=== PATIENT | male | born 1970 | race Two or more races ===

== ENCOUNTER 2016-06-17 16:21 | Emergency (ER) | payer SELFPAY ==
[2016-06-17 16:38] VITALS: BP 126/56; PULSE 95; TEMP 98; BMI 26.5
[2016-06-17] MEDS ORDERED: OXYCODONE/APAP 5/325MG COMBO TABLET PO ONE (17:45)
--- NOTE | 2016-06-17 17:46 | PDOC ---
History of Present Illness - General Chief Complaint: Pain Stated Complaint: LT SHOULDER INJURY Time Seen by Provider: 06/17/16 17:20 History Source: Patient Exam Limitations: No Limitations - History of Present Illness Initial Comments: 06/17/16 17:42 45 yr male states he injured his left shoulder 4 days ago at work 06/13/16 was seen at [facility] had negative xray and a sling was given. Pt states he called out of work today and needs a note. Upper Extremity Pain Location: left: shoulder Method of Injury: reports: direct blow (heavy materials fell on shoulder at work 06/13/16) Past History - Past Medical History Allergies/Adverse Reactions: Allergies Allergy/AdvReac Type Severity Reaction Status Date / Time NSAIDS (Non-Steroidal Allergy Verified 06/17/16 16:38 Anti-Inflamma Home Medications: Ambulatory Orders Oxycodone HCl/Acetaminophen [Percocet 5-325 mg Tablet] 1 tab PO Q4H PRN #12 tablet MDD 6 tabs 06/17/16 Anemia: No Asthma: No Cancer: No Cardiac Disorders: No CVA: No COPD: No CHF: No Dementia: No Diabetes: No GI Disorders: Yes (gastric ulcer) Disorders: (Kidney stones.) HTN: Yes Hypercholesterolemia: No Kidney Stones: Yes Liver Disease: No (DENIES) Suicide Attempt (Hx): No Seizures: No Thyroid Disease: No - Surgical History Abdominal Surgery: Yes (blood clot,cyst) Appendectomy: No Cardiac Surgery: No Cholecystectomy: No Lung Surgery: No Neurologic Surgery: No Orthopedic Surgery: No - Family Disease History Family Disease History: Diabetes: Father, Heart Disease: Father - Immunization History Td Vaccination: Yes Immunization Up to Date: Yes - Psycho/Social/Smoking Cessation Hx Anxiety: No Suicidal Ideation: No Smoking Status: Yes Smoking History: Never smoked Have you smoked in the past 12 months: Yes Number of Cigarettes Smoked Daily: 6 Cigars Per Day: 0 Information on smoking cessation initiated: No 'Breaking Loose' booklet given: 01/29/16 Hx Alcohol Use: No Drug/Substance Use Hx: No Substance Use Type: None Hx Substance Use Treatment: No *Physical Exam - Vital Signs Last Vital Signs Temp Pulse Resp BP Pulse Ox 98 F 95 H 18 126/56 99 06/17/16 16:36 06/17/16 16:36 06/17/16 16:36 06/17/16 16:36 06/17/16 16:36 - Physical Exam General Appearance: Yes: Nourished, Appropriately Dressed HEENT: positive: EOMI, HUNTER Neck: positive: Supple. negative: Tender, Tender lateral Respiratory/Chest: positive: Lungs Clear, Normal Breath Sounds Cardiovascular: positive: Regular Rhythm, Regular Rate Extremity: positive: Normal Capillary Refill, Normal Inspection, Tender ( anterior left shoulder, anterior humeral head, limited ROM due to pain , nv intact ) Integumentary: positive: Normal Color, Dry, Warm Neurologic: positive: Fully Oriented, Alert, Normal Mood/Affect, Normal Response , Motor Strength 07/19 ED Treatment Course - RADIOLOGY Radiology Studies Ordered: Category Date Time Status SHOULDER-LEFT [RAD] Stat Radiology 06/17/16 17:40 Ordered Medical Decision Making - Medical Decision Making 06/17/16 17:51 cc: shoulder injury 06/13/16 c/o pain needs a work note pt has a sling 06/17/16 18:19 *DC/Admit/Observation/Transfer Diagnosis at time of Disposition: Shoulder injury Qualifiers: Encounter type: initial encounter Laterality: left Qualified Code(s): S49.92XA - Unspecified injury of left shoulder and upper arm, initial encounter - Discharge Dispostion Disposition: HOME Condition at time of disposition: Good - Prescriptions Prescriptions: Oxycodone HCl/Acetaminophen [Percocet 5-325 mg Tablet] 1 tab PO Q4H PRN #12 tablet MDD 6 tabs PRN Reason: Severe Pain - Referrals Referrals: Niels Amezquita MD [Staff Physician] - - Patient Instructions Printed Discharge Instructions: How to Use a Sling Additional Instructions: please follow up with or the orthopedist for further care take percocet for severe pain use the sling during the day apply ice every 2hrs for 20 minutes to the left shoulder while awake for pain - Post Discharge Activity Work/School Note: Back to Work
[2016-06-17] MEDS ORDERED: OXYCODONE/APAP 5/325MG COMBO TABLET ONE (17:47)
== END 2016-06-17 18:32 | disposition home or self-care (01) ==
LOC: JERFT 16:21
DX: S49.82XD Other specified injuries of left shoulder and upper arm, subsequent encounter (principal); W20.8XXD Other cause of strike by thrown, projected or falling object, subsequent encounter
CPT/HCPCS: 73030-TC-LT; 99281-25

== ENCOUNTER 2016-06-26 18:40 | Emergency (ER) | payer OTHER ==
[2016-06-26 18:53] VITALS: BP 114/72; PULSE 90; TEMP 98.3; BMI 26.5
[2016-06-26] MEDS ORDERED: ACETAMINOPHEN 325 MG TABLET (FP) PO ONE (19:09)
[2016-06-26] MEDS ORDERED: ACETAMINOPHEN 325 MG TABLET (FP) ONE (19:11)
--- NOTE | 2016-06-26 19:15 | PDOC ---
History of Present Illness - General Chief Complaint: Pain, Acute Stated Complaint: PAIN Time Seen by Provider: 06/26/16 18:54 History Source: Patient - History of Present Illness Occurred: reports: other Upper Extremity Pain Location: left: shoulder Past History - Past Medical History Allergies/Adverse Reactions: Allergies Allergy/AdvReac Type Severity Reaction Status Date / Time NSAIDS (Non-Steroidal Allergy Verified 06/17/16 16:38 Anti-Inflamma Home Medications: Ambulatory Orders NK [No Known Home Medication] 06/26/16 Anemia: No Asthma: No Cancer: No Cardiac Disorders: No CVA: No COPD: No CHF: No Dementia: No Diabetes: No GI Disorders: Yes (gastric ulcer) Disorders: (Kidney stones.) HTN: Yes Hypercholesterolemia: No Kidney Stones: Yes Liver Disease: No (DENIES) Suicide Attempt (Hx): No Seizures: No Thyroid Disease: No - Surgical History Abdominal Surgery: Yes (blood clot,cyst) Appendectomy: No Cardiac Surgery: No Cholecystectomy: No Lung Surgery: No Neurologic Surgery: No Orthopedic Surgery: No - Family Disease History Family Disease History: Diabetes: Father, Heart Disease: Father - Immunization History Td Vaccination: Yes Immunization Up to Date: Yes - Psycho/Social/Smoking Cessation Hx Anxiety: No Suicidal Ideation: No Smoking Status: Yes Smoking History: Current every day smoker Have you smoked in the past 12 months: Yes Number of Cigarettes Smoked Daily: 1 Cigars Per Day: 0 Information on smoking cessation initiated: Yes 'Breaking Loose' booklet given: 06/26/16 Hx Alcohol Use: No Drug/Substance Use Hx: No Substance Use Type: None Hx Substance Use Treatment: No *Physical Exam - Vital Signs Last Vital Signs Temp Pulse Resp BP Pulse Ox 98.3 F 90 18 114/72 98 06/26/16 18:47 06/26/16 18:47 06/26/16 18:47 06/26/16 18:47 06/26/16 18:47 Medical Decision Making - Medical Decision Making 06/26/16 19:10 46-year-old male, h/o GERD, abd surgery 2/2 perf viscous from "excessive alcohol use" as per pt, complaining of left shoulder pain. Patient was seen in ED approximately 10 days ago after getting left shoulder caught between sheet rockss. Had, had prior x-ray done that was negative. Patient was given percocet and a sling and ortho referral but returns today reporting that pain got worse today while at work. States sling makes pain worse. Not currently taking anything for pain as per patient and requesting percocet specifically today. Patient well-appearing and in no apparent distress, with minimal tenderness to palpation to the superior aspect of the G-H joint. DC with over- the-counter pain meds and encourage orthopedic follow-up at this time 06/26/16 19:12 06/26/16 19:14 *DC/Admit/Observation/Transfer Diagnosis at time of Disposition: Shoulder pain, left Qualifiers: Chronicity: acute Qualified Code(s): M25.512 - Pain in left shoulder - Discharge Dispostion Disposition: HOME Condition at time of disposition: Good - Patient Instructions Additional Instructions: Take Tylenol as needed and follow up with orthopedics
== END 2016-06-26 19:17 | disposition home or self-care (01) ==
LOC: JERFT 18:40
DX: S49.82XD Other specified injuries of left shoulder and upper arm, subsequent encounter (principal); W20.8XXD Other cause of strike by thrown, projected or falling object, subsequent encounter; Y92.61 Building [any] under construction as the place of occurrence of the external cause; I10 Essential (primary) hypertension; Z87.11 Personal history of peptic ulcer disease; Z87.442 Personal history of urinary calculi
CPT/HCPCS: 99281-25

== ENCOUNTER 2016-07-08 12:57 | Emergency (ER) | payer OTHER ==
[2016-07-08 13:09] VITALS: BP 105/56; PULSE 76; TEMP 97.7; BMI 26.5
[2016-07-08] MEDS ORDERED: IBUPROFEN 400 MG TABLET (FP) PO ONE ×2 (14:07→14:09)
--- NOTE | 2016-07-08 14:14 | PDOC ---
History of Present Illness - General Chief Complaint: Injury Stated Complaint: FOOT PAIN Time Seen by Provider: 07/08/16 13:44 History Source: Patient - History of Present Illness Occurred: reports: this afternoon Lower Extremity Pain Location: left: 2nd toe Past History - Past Medical History Allergies/Adverse Reactions: Allergies Allergy/AdvReac Type Severity Reaction Status Date / Time No Known Allergies Allergy Verified 07/08/16 13:09 Home Medications: Ambulatory Orders NK [No Known Home Medication] 06/26/16 Anemia: No Asthma: No Cancer: No Cardiac Disorders: No CVA: No COPD: No CHF: No Dementia: No Diabetes: No GI Disorders: Yes (gastric ulcer) Disorders: (Kidney stones.) HTN: Yes Hypercholesterolemia: No Kidney Stones: Yes Liver Disease: No (DENIES) Suicide Attempt (Hx): No Seizures: No Thyroid Disease: No - Surgical History Abdominal Surgery: Yes (blood clot,cyst) Appendectomy: No Cardiac Surgery: No Cholecystectomy: No Lung Surgery: No Neurologic Surgery: No Orthopedic Surgery: No - Family Disease History Family Disease History: Diabetes: Father, Heart Disease: Father - Immunization History Td Vaccination: Yes Immunization Up to Date: Yes - Psycho/Social/Smoking Cessation Hx Anxiety: No Suicidal Ideation: No Smoking Status: Yes Smoking History: Current every day smoker Have you smoked in the past 12 months: Yes Number of Cigarettes Smoked Daily: 1 Cigars Per Day: 0 Information on smoking cessation initiated: Yes 'Breaking Loose' booklet given: 07/08/16 Hx Alcohol Use: No Drug/Substance Use Hx: No Substance Use Type: None Hx Substance Use Treatment: No Review of Systems - Review of Systems Musculoskeletal: Yes: Joint Pain, Joint Swelling *Physical Exam - Vital Signs Last Vital Signs Temp Pulse Resp BP Pulse Ox 97.7 F 76 19 105/56 98 07/08/16 13:07 07/08/16 13:07 07/08/16 13:07 07/08/16 13:07 07/08/16 13:07 - Physical Exam General Appearance: Yes: Appropriately Dressed. No: Apparent Distress HEENT: positive: Normal Voice Neck: positive: Supple Respiratory/Chest: negative: Respiratory Distress Extremity: positive: Other (swelling to distal L 2nd toe w/ loose nail and cuticle disruption, +dried blood to site) Integumentary: positive: Dry, Warm Neurologic: positive: Fully Oriented, Alert, Normal Mood/Affect ED Treatment Course - RADIOLOGY Radiology Studies Ordered: Category Date Time Status TOE(S) LEFT [RAD] Stat Radiology 07/08/16 14:08 Ordered Medical Decision Making - Medical Decision Making 07/08/16 14:09 46 yo male, h/o GERD, abd surgery 2/2 perf viscous 2/2 "excessive ETOH use" per pt, c/o L 2nd toe injury. 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 Patient limping in ED. See exam Nail avulsion s/p foot injury at work today -tetanus -XR -nail removal w/ digital block -wound check as needed. 07/08/16 15:10 S/p toenail removal, no lac to nailbed to repair. Local wound care and dressing at bedside. Pt aware that it take ~3-4 months for nail to regrow. Dc w/ wound check as needed 07/08/16 15:14 *DC/Admit/Observation/Transfer Diagnosis at time of Disposition: Injury of toe Qualifiers: Encounter type: initial encounter Laterality: left Qualified Code(s): S99.922A - Unspecified injury of left foot, initial encounter Nail avulsion of toe Qualifiers: Encounter type: initial encounter Qualified Code(s): S91.209A - Unspecified open wound of unspecified toe(s) with damage to nail, initial encounter - Discharge Dispostion Disposition: HOME Condition at time of disposition: Good - Patient Instructions Printed Discharge Instructions: DI for Nail Avulsion Injury Additional Instructions: Return for redness, pus or fever. Take tylenol as needed for pain
[2016-07-08] MEDS ORDERED: DIPHTH,PERTUSS(ACELL),TET 0.5 ML DISP.SYRIN IM ONE (14:17)
== END 2016-07-08 15:16 | disposition home or self-care (01) ==
LOC: JERFT 12:57
PROC: 3E0234Z Introduction of Serum, Toxoid and Vaccine into Muscle, Percutaneous Approach (ICD-10-PCS; principal; 2016-07-08)
PROC: 0HDRXZZ Extraction of Toe Nail, External Approach (ICD-10-PCS; 2016-07-08)
DX: S91.205A Unspecified open wound of left lesser toe(s) with damage to nail, initial encounter (principal); W22.8XXA Striking against or struck by other objects, initial encounter; Y93.H3 Activity, building and construction; Y92.69 Other specified industrial and construction area as the place of occurrence of the external cause; Y99.0 Civilian activity done for income or pay
CPT/HCPCS: 73660-TC; 90715; 99281-25

== ENCOUNTER 2016-08-13 20:04 | Emergency (ER) | payer SELFPAY ==
[2016-08-13 20:12] VITALS: BP 134/76; PULSE 81; TEMP 97.6; BMI 28.3
[2016-08-13] MEDS ORDERED: METHOCARBAMOL 500 MG TABLET ONE ×2 (20:57→21:00)
[2016-08-13] MEDS ORDERED: METHOCARBAMOL 500 MG TABLET PO ONE ×2 (20:58)
[2016-08-13] MEDS ORDERED: KETOROLAC TROMETHAMINE 60 MG/2 ML VIAL IM ONE (20:58)
[2016-08-13] MEDS ORDERED: KETOROLAC TROMETHAMINE 30 MG/1 ML VIAL ONE (20:58)
--- NOTE | 2016-08-13 21:01 | PDOC ---
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 Patient has chronic pain problems and spasmodic back and neck musculature. It is under pain management with frequent steroid injections and some type of medication that he receives from pain management that he is uncertain as to name. States is not a narcotic and not a pain relief medication. Does not use any anti- spasmodic or narcotic pain relief now. An ice fever, denies any bone pain. States it is an acute exacerbation of his chronic neck and back pain 08/13/16 20:56 Occurred: reports: this afternoon Severity: reports: moderate Pain Location: reports: back, neck Modifying Factors: improves with: pain medication Associated Symptoms (Fall): denies symptoms Past History - Travel Traveled outside of the country in the last 30 days: No Close contact w/someone who was outside of country & ill: No - Past Medical History Allergies/Adverse Reactions: Allergies Allergy/AdvReac Type Severity Reaction Status Date / Time No Known Allergies Allergy Verified 08/13/16 20:09 Home Medications: Ambulatory Orders Methocarbamol [Robaxin -] 1,500 mg PO Q8H PRN #20 tablet 08/13/16 Anemia: No Asthma: No Cancer: No Cardiac Disorders: No CVA: No COPD: No CHF: No Dementia: No Diabetes: No GI Disorders: Yes (gastric ulcer) Disorders: (Kidney stones.) HTN: Yes Hypercholesterolemia: No Kidney Stones: Yes Liver Disease: No (DENIES) Suicide Attempt (Hx): No Seizures: No Thyroid Disease: No - Surgical History Abdominal Surgery: Yes (blood clot,cyst) Appendectomy: No Cardiac Surgery: No Cholecystectomy: No Lung Surgery: No Neurologic Surgery: No Orthopedic Surgery: No - Family Disease History Family Disease History: Diabetes: Father, Heart Disease: Father - Immunization History Td Vaccination: Yes Immunization Up to Date: Yes - Psycho/Social/Smoking Cessation Hx Anxiety: No Suicidal Ideation: No Smoking Status: Yes Smoking History: Current every day smoker Have you smoked in the past 12 months: Yes Number of Cigarettes Smoked Daily: 3 Cigars Per Day: 0 Information on smoking cessation initiated: No 'Breaking Loose' booklet given: 07/08/16 Hx Alcohol Use: No Drug/Substance Use Hx: No Substance Use Type: None Hx Substance Use Treatment: No Trauma Specific PMHX - Complaint Specific PMHX Arthritis: No Back Injury: Yes Neck Injury: Yes Review of Systems - Review of Systems Able to Perform ROS?: Yes Is the patient limited Ecuadorean proficient: Yes Constitutional: Yes: Symptoms Reported, See HPI, Malaise Musculoskeletal: Yes: Symptoms Reported, See HPI, Joint Pain, Muscle Pain, Muscle Weakness, Neck Pain Integumentary: No: Symptoms Reported Neurological: Yes: Symptoms reported, Paresthesia (along the lateral aspect of left arm) *Physical Exam - Vital Signs Last Vital Signs Temp Pulse Resp BP Pulse Ox 97.6 F 81 20 134/76 99 08/13/16 20:10 08/13/16 20:10 08/13/16 20:10 08/13/16 20:10 08/13/16 20:10 - Physical Exam General Appearance: Yes: Nourished, Appropriately Dressed, Apparent Distress, Mild Distress, Moderate Distress HEENT: positive: HUNTER, Normal ENT Inspection, TMs Normal, Pharynx Normal Neck: positive: Tender, Supple, Other (palpable tense spasm noted to bilateral paravertebral spinous muscles worse on the left than the right, that extended to upper trapezius and down to the lower insertion site of same. Patient range of motion is limited secondary to the significant spasm. Has no true bony tenderness to neck spinous process.) Respiratory/Chest: positive: Lungs Clear Gastrointestinal/Abdominal: positive: Soft Musculoskeletal: positive: Normal Inspection, Muscle Spasm. negative: Vertebral Tenderness Extremity: positive: Normal Capillary Refill, Normal Range of Motion Integumentary: positive: Normal Color, Dry, Warm Neurologic: positive: education officer II-XII NML intact, Fully Oriented, Alert, Normal Mood/ Affect Progress Note - Progress Note Progress Note: Neck spasm and back spasm. We'll treat with NSAIDs and Robaxin. Patient states will see pain management tomorrow or following day for reevaluation *DC/Admit/Observation/Transfer Diagnosis at time of Disposition: Neck pain, chronic - Discharge Dispostion Disposition: HOME Condition at time of disposition: Stable Admit: No - Patient Instructions Printed Discharge Instructions: DI for Back Spasm Additional Instructions: Rest, no heavy lifting or exercise until pain is resolved Hot soaks to neck and low back as often as possible/hot showers or Jacuzzis No massage or therapy until spasm is gone Continue ibuprofen 2-200 mg tablets every 6 hours for the next 3 days then as needed for pain and swelling Robaxin 1500 mg every 8 hours for 2 days, then 750 mg every 8 hours for 2 days, then 500 mg every 8 hours as needed for spasm If not significant improvement within 24 hours with medication and rest regime, followup with private physician for change in medications and /or therapy. - Post Discharge Activity Work/School Note: Back to Work
== END 2016-08-13 21:12 | disposition home or self-care (01) ==
LOC: JERFT 20:04
PROC: 3E0233Z Introduction of Anti-inflammatory into Muscle, Percutaneous Approach (ICD-10-PCS; principal; 2016-08-13)
DX: M62.838 Other muscle spasm (principal); V85.5XXA Driver of special construction vehicle injured in nontraffic accident, initial encounter; Y92.488 Other paved roadways as the place of occurrence of the external cause; Y93.89 Activity, other specified; Y99.0 Civilian activity done for income or pay
CPT/HCPCS: 99281-25

== ENCOUNTER 2016-08-15 11:29 | Emergency (ER) | payer OTHER ==
[2016-08-15 11:53] VITALS: BP 117/79; PULSE 81; TEMP 98; BMI 28.3
[2016-08-15] MEDS ORDERED: KETOROLAC TROMETHAMINE 60 MG/2 ML VIAL IM ONE (12:49)
[2016-08-15] MEDS ORDERED: KETOROLAC TROMETHAMINE 60 MG/2 ML VIAL ONE (12:57)
--- NOTE | 2016-08-15 12:58 | PDOC ---
History of Present Illness - General Chief Complaint: Pain Stated Complaint: RT SHOULDER PAIN Time Seen by Provider: 08/15/16 12:02 History Source: Patient - History of Present Illness Occurred: reports: this morning Upper Extremity Pain Location: left: shoulder Past History - Past Medical History Allergies/Adverse Reactions: Allergies Allergy/AdvReac Type Severity Reaction Status Date / Time No Known Allergies Allergy Verified 08/13/16 20:09 Anemia: No Asthma: No Cancer: No Cardiac Disorders: No CVA: No COPD: No CHF: No Dementia: No Diabetes: No GI Disorders: Yes (gastric ulcer) Disorders: (Kidney stones.) HTN: Yes Hypercholesterolemia: No Kidney Stones: Yes Liver Disease: No (DENIES) Suicide Attempt (Hx): No Seizures: No Thyroid Disease: No - Surgical History Abdominal Surgery: Yes (blood clot,cyst) Appendectomy: No Cardiac Surgery: No Cholecystectomy: No Lung Surgery: No Neurologic Surgery: No Orthopedic Surgery: No - Family Disease History Family Disease History: Diabetes: Father, Heart Disease: Father - Immunization History Td Vaccination: Yes Immunization Up to Date: Yes - Psycho/Social/Smoking Cessation Hx Anxiety: No Suicidal Ideation: No Smoking Status: Yes Smoking History: Current every day smoker Have you smoked in the past 12 months: Yes Number of Cigarettes Smoked Daily: 3 Cigars Per Day: 0 Information on smoking cessation initiated: No 'Breaking Loose' booklet given: 07/08/16 Hx Alcohol Use: No Drug/Substance Use Hx: No Substance Use Type: None Hx Substance Use Treatment: No Review of Systems - Review of Systems Constitutional: No: Fever Musculoskeletal: Yes: Joint Pain. No: Joint Swelling Neurological: No: Numbness, Tingling, Weakness *Physical Exam - Vital Signs Last Vital Signs Temp Pulse Resp BP Pulse Ox 98 F 81 16 117/79 100 08/15/16 11:48 08/15/16 11:48 08/15/16 11:48 08/15/16 11:48 08/15/16 11:48 - Physical Exam General Appearance: Yes: Appropriately Dressed, Mild Distress HEENT: positive: Normal Voice Neck: positive: Supple Respiratory/Chest: negative: Respiratory Distress Extremity: positive: Normal Inspection, Tender (to posterior aspect of L GH joint and superior aspect of L shoulderblade, LROM 2/2 pain, NVI) Integumentary: positive: Dry, Warm Neurologic: positive: Fully Oriented, Alert, Normal Mood/Affect Medical Decision Making - Medical Decision Making 08/15/16 13:06 46-year-old male, history of GERD, abdominal surgery 2/2 to perf from " excessive alcohol use", chronic left shoulder pain presents with worsening of shoulder pain after opening a window at work with am. Currently being followed up by employee's health and scheduled for MRI in the near future per pt. Follows up with pain management and on narcotics at home. No upper extremity weakness, numbness or tingling. See exam Acute on chronic shoulder pain Scheduled for MRI in near future F/u with pain management and on narcs at home -pain control and sling in ED -d/c with continued f/u 08/15/16 13:14 *DC/Admit/Observation/Transfer Diagnosis at time of Disposition: Chronic shoulder pain Qualifiers: Laterality: left Qualified Code(s): M25.512 - Pain in left shoulder; G89.29 - Other chronic pain - Discharge Dispostion Disposition: HOME Condition at time of disposition: Improved - Patient Instructions Additional Instructions: Take motrin or tylenol for pain and follow up with worker's comp for MRI Please follow up with your pain management MD
== END 2016-08-15 13:07 | disposition home or self-care (01) ==
LOC: JER 11:29 → JERFT 11:29
PROC: 3E0233Z Introduction of Anti-inflammatory into Muscle, Percutaneous Approach (ICD-10-PCS; principal; 2016-08-15)
DX: M25.512 Pain in left shoulder (principal); G89.29 Other chronic pain; X50.0XXA Overexertion from strenuous movement or load, initial encounter; X50.9XXA Other and unspecified overexertion or strenuous movements or postures, initial encounter; Y93.89 Activity, other specified; Y92.63 Factory as the place of occurrence of the external cause; Y99.0 Civilian activity done for income or pay
CPT/HCPCS: 99281-25

== ENCOUNTER 2016-11-13 10:43 | Emergency (ER) | payer SELFPAY ==
[2016-11-13 10:49] VITALS: BMI 26.6
[2016-11-13] MEDS ORDERED: KETOROLAC TROMETHAMINE 15 MG/ML VIAL IVPUSH ONE (13:51)
[2016-11-13] MEDS ORDERED: KETOROLAC TROMETHAMINE 15 MG/ML VIAL ONE (14:07)
[2016-11-13 14:09] LABS: BASOPHIL 0.8 % (0-2.0); EOSINOPHIL 2.1 % (0-4.5); MCHC 33.4 g/dl (32.0-35.9); MEAN CELL VOLUME 92.8 fl (80-96); MEAN PLT VOLUME 9.7 fl (7.5-11.1); NEUTROPHILS 68.8 % (42.8-82.8); PLATELET COUNT 243 K/MM3 (134-434); RDW 14.8 % (11.9-15.9); WHITE BLOOD COUNT 8.5 K/mm3 (4.0-10.0)
[2016-11-13] MEDS ORDERED: SODIUM CHLORIDE 1,000 ML IV STA (14:18)
[2016-11-13] MEDS ORDERED: LOPERAMIDE HCL 2 MG CAPSULE PO ONE (14:18)
--- NOTE | 2016-11-13 14:21 | PDOC ---
History of Present Illness <Noah Rubi - Last Filed: 11/13/16 17:49> - History of Present Illness Initial Comments: 11/13/16 14:25 "The patient is a 46 year old male, with a significant past medical history of hypertension, gastric ulcer(s/p laparotomy of perforated duodenal ulcer on 12/12), colitis, kidney stones(s/p stents), and chronic back pain, who presents to the emergency department complaining of back pain for approximately 3 days. The patient reports the pain radiates down into his lower back, and into his legs bilaterally. He denies numbness/weakness in his extremities. Denies saddle anesthesia, denies incontinence. Patient reports he has not been on any pain medications. Today, patient reports new onset of chest pain, which he describes as sharp. He reports associated, night sweats, and shortness of breath, but denies any palpitations or lower extremity edema. Patient reports a subjective fever and chills 3 days ago, but denies any cough, headache, or dizziness. He denies any dysuria, hematuria, frequency, urgency, or urinary incontinence. He denies any recent travel or sick contacts. Patient reports he has not been following up with anyone for his back pain, and states he usually comes to the ED when he cannot handle the pain any more. Allergies: NSAIDS Past Surgical History: Laparotomy of perforated duodenal ulcer, kidney stents Social History: Current smoker(approximately 6 cigarettes per day). Recreational marijuana use. No ETOH use. " <Yoel Brooks - Last Filed: 11/14/16 09:33> - General Chief Complaint: Pain Stated Complaint: DIARRHEA, LOWER BACK PAIN, ([place]) Time Seen by Provider: 11/13/16 12:31 Past History <Noah Rubi - Last Filed: 11/13/16 17:49> - Past Medical History Anemia: No Asthma: No Cancer: No Cardiac Disorders: No CVA: No COPD: No CHF: No Dementia: No Diabetes: No GI Disorders: Yes (gastric ulcer) Disorders: (Kidney stones.) HTN: Yes Hypercholesterolemia: No Kidney Stones: Yes Liver Disease: No (DENIES) Suicide Attempt (Hx): No Seizures: No Thyroid Disease: No - Surgical History Abdominal Surgery: Yes (blood clot,cyst) Appendectomy: No Cardiac Surgery: No Cholecystectomy: No GI Surgery: Yes Lung Surgery: No Neurologic Surgery: No Orthopedic Surgery: No - Family Disease History Family Disease History: Diabetes: Father, Heart Disease: Father - Immunization History Td Vaccination: Yes Immunization Up to Date: Yes - Psycho/Social/Smoking Cessation Hx Anxiety: No Suicidal Ideation: No Smoking Status: Yes Smoking History: Current every day smoker Have you smoked in the past 12 months: Yes Number of Cigarettes Smoked Daily: 4 Cigars Per Day: 0 Information on smoking cessation initiated: Yes 'Breaking Loose' booklet given: 11/13/16 Hx Alcohol Use: Yes (SOCIAL) Drug/Substance Use Hx: No Substance Use Type: None Hx Substance Use Treatment: No <Yoel Brooks - Last Filed: 11/14/16 09:33> - Past Medical History Allergies/Adverse Reactions: Allergies Allergy/AdvReac Type Severity Reaction Status Date / Time No Known Allergies Allergy Verified 11/13/16 10:49 Review of Systems - Review of Systems Comments:: 11/13/16 16:07 "GENERAL/CONSTITUTIONAL: Yes: no fever No weakness. HEAD, EYES, EARS, NOSE AND THROAT: No change in vision. No ear pain or discharge. No sore throat. CARDIOVASCULAR: Yes: +chest pain, no shortness of breath. RESPIRATORY: No cough, wheezing, or hemoptysis. GASTROINTESTINAL: No nausea, vomiting, diarrhea or constipation. GENITOURINARY: No dysuria, frequency, or change in urination. MUSCULOSKELETAL: Yes: +back pain radiating into legs. No joint or muscle swelling or pain. No neck pain. SKIN: No rash NEUROLOGIC: Yes: +tingling in the bilateral lower extremities. No headache, vertigo, loss of consciousness, or change in strength/sensation. ENDOCRINE: No increased thirst. No abnormal weight change. HEMATOLOGIC/LYMPHATIC: No anemia, easy bleeding, or history of blood clots. ALLERGIC/IMMUNOLOGIC: No hives or skin allergy. " <Yoel Brooks - Last Filed: 11/14/16 09:33> *Physical Exam - Vital Signs Last Vital Signs Temp Pulse Resp BP Pulse Ox 97.8 F 69 18 158/78 96 11/13/16 10:46 11/13/16 16:44 11/13/16 16:44 11/13/16 16:44 11/13/16 16:44 <Rubi,Giomilsy - Last Filed: 11/13/16 17:49> - Vital Signs Last Vital Signs Temp Pulse Resp BP Pulse Ox 97.8 F 94 H 20 130/89 97 11/13/16 10:46 11/13/16 10:46 11/13/16 10:46 11/13/16 10:46 11/13/16 10:46 - Physical Exam Comments: 11/13/16 16:08 "GENERAL: Awake, alert, and fully oriented, in no acute distress HEAD: No signs of trauma EYES: PERRLA, EOMI, sclera anicteric, conjunctiva clear ENT: Auricles normal inspection, hearing grossly normal, nares patent, oropharynx clear without exudates. Moist mucosa NECK: Normal ROM, supple, no lymphadenopathy, JVD, or masses LUNGS: Breath sounds equal, clear to auscultation bilaterally. No wheezes, and no crackles HEART: Regular rate and rhythm, normal S1 and S2, no murmurs, rubs or gallops ABDOMEN: Soft, nontender, normoactive bowel sounds. No guarding, no rebound. No masses EXTREMITIES: Normal range of motion, no edema. No clubbing or cyanosis. No cords, erythema, or tenderness NEUROLOGICAL: Cranial nerves II through XII intact, 5/5 strength and sensation in all extremities, normal reflexes, pt ambulatory in ER without assistance, normal gait SKIN: Warm, Dry, normal turgor, no rashes or lesions noted. " <OuYoel - Last Filed: 11/14/16 09:33> Heart Score/ECG Review - History History: Slightly suspicious - Electrocardiogram EKG: Normal - Age Age: 45-65 - Risk Factors Risk Factors Heart Score: Yes Hx Hypertension Based on the list above the patient has:: 1-2 risk factors - Troponin Troponin: </= normal limit - Score Heart Score - Total: 2 - ECG Impressions Comment:: 11/13/16 16:10 NSR, no TODD/STDs, no TWIs, intervals wnl, axis normal <Ou,Yoel - Last Filed: 11/14/16 09:33> ED Treatment Course - LABORATORY CBC & Chemistry Diagram: 11/13/16 13:05 11/13/16 13:05 - ADDITIONAL ORDERS Additional order review: Laboratory Results 11/13/16 11/13/16 11/13/16 16:30 14:00 14:00 INR 0.99 PTT (Actin FS) 36.3 H D-Dimer Sodium Potassium Chloride Carbon Dioxide Anion Gap BUN Creatinine Creat Clearance w eGFR Random Glucose Calcium Total Bilirubin AST ALT Alkaline Phosphatase Creatine Kinase 189 Creatine Kinase Index 0.9 CK-MB (CK-2) 1.883 Troponin I < 0.02 < 0.02 B-Natriuretic Peptide 15.59 Total Protein Albumin 11/13/16 11/13/16 14:00 13:05 INR PTT (Actin FS) D-Dimer < 200 Sodium 138 Potassium 4.3 Chloride 101 Carbon Dioxide 28 Anion Gap 9 BUN 10 D Creatinine 0.9 Creat Clearance w eGFR > 60 Random Glucose 92 D Calcium 9.3 Total Bilirubin 0.7 D AST 22 D ALT 26 D Alkaline Phosphatase 77 Creatine Kinase Creatine Kinase Index CK-MB (CK-2) Troponin I B-Natriuretic Peptide Total Protein 7.8 Albumin 4.4 D 11/13/16 13:05 RBC 5.41 D MCV 92.8 MCHC 33.4 RDW 14.8 MPV 9.7 Neutrophils % 68.8 Lymphocytes % 19.2 D Monocytes % 9.1 Eosinophils % 2.1 Basophils % 0.8 - RADIOLOGY Radiograph Interpretation: 11/13/16 17:49 EXAM: CXR INTERPRETED BY: Dr. Paulino REVIEWED BY: Dr. Brooks IMPRESSION: Clear lungs - Medications Given in the ED: ED Medications Discontinued Medications Generic Name Dose Route Start Last Admin Trade Name Freq PRN Reason Stop Dose Admin Sodium Chloride 1,000 mls @ 1,000 mls/hr 11/13/16 14:18 11/13/16 14:19 Normal Saline - IV 11/13/16 15:17 1,000 mls/hr ASDIR STA Administration Ketorolac Tromethamine 15 mg 11/13/16 13:51 11/13/16 14:18 Toradol Injection - IVPUSH 11/13/16 13:52 15 mg ONCE ONE Administration Loperamide HCl 4 mg 11/13/16 14:18 11/13/16 14:27 Imodium - PO 11/13/16 14:19 4 mg ONCE ONE Administration <RubiGiomilsy - Last Filed: 11/13/16 17:49> - LABORATORY CBC & Chemistry Diagram: 11/13/16 13:05 11/13/16 13:05 - RADIOLOGY Radiology Studies Ordered: Category Date Time Status CHEST PA & LAT [RAD] Stat Radiology 11/13/16 13:22 Ordered <Yoel Brooks - Last Filed: 11/14/16 09:33> Medical Decision Making - Medical Decision Making 11/13/16 16:11 46 M presenting to ER with acute on chronic back pain and new chest pain. Pt witnessed ambulating, as well as dancing, in ER with normal gait. Low suspicion for acute spinal cord injury. Pt was previously seeing pain management clinic. Will defer prescribing narcotic pain medications at this time. Pt's chest pain is very atypical in nature, EKG nonischemic. Low risk chest pain. Will r/o ACS with serial trops. - Labs, trop - CXR 11/13/16 17:47 Trop negative x 2 CBC,CMP WBC 8.5 K/mm3 (4.0-10.0) 11/13/16 13:05 RBC 5.41 M/mm3 (4.00-5.60) D 11/13/16 13:05 Hgb 16.8 GM/dL (11.7-16.9) D 11/13/16 13:05 Hct 50.2 % (35.4-49) H D 11/13/16 13:05 MCV 92.8 fl (80-96) 11/13/16 13:05 MCH 31.0 pg (25.7-33.7) 11/13/16 13:05 MCHC 33.4 g/dl (32.0-35.9) 11/13/16 13:05 RDW 14.8 % (11.9-15.9) 11/13/16 13:05 Plt Count 243 K/MM3 (134-434) 11/13/16 13:05 MPV 9.7 fl (7.5-11.1) 11/13/16 13:05 Neutrophils % 68.8 % (42.8-82.8) 11/13/16 13:05 Lymphocytes % 19.2 % (8-40) D 11/13/16 13:05 Monocytes % 9.1 % (3.8-10.2) 11/13/16 13:05 Eosinophils % 2.1 % (0-4.5) 11/13/16 13:05 Basophils % 0.8 % (0-2.0) 11/13/16 13:05 Sodium 138 mmol/L (136-145) 11/13/16 13:05 Potassium 4.3 mmol/L (3.5-5.1) 11/13/16 13:05 Chloride 101 mmol/L (98-107) 11/13/16 13:05 Carbon Dioxide 28 mmol/L (21-32) 11/13/16 13:05 Anion Gap 9 (8-16) 11/13/16 13:05 BUN 10 mg/dL (7-18) D 11/13/16 13:05 Creatinine 0.9 mg/dL (0.7-1.3) 11/13/16 13:05 Creat Clearance w eGFR > 60 (>60) 11/13/16 13:05 Random Glucose 92 mg/dL (74-106) D 11/13/16 13:05 Calcium 9.3 mg/dL (8.5-10.1) 11/13/16 13:05 Total Bilirubin 0.7 mg/dL (0.2-1.0) D 11/13/16 13:05 AST 22 U/L (15-37) D 11/13/16 13:05 ALT 26 U/L (12-78) D 11/13/16 13:05 Alkaline Phosphatase 77 U/L (45-117) 11/13/16 13:05 Creatine Kinase 189 IU/L (39-308) 11/13/16 14:00 Creatine Kinase Index 0.9 % (0.0-5.0) 11/13/16 14:00 CK-MB (CK-2) 1.883 ng/mL (0.5-3.6) 11/13/16 14:00 Troponin I < 0.02 ng/ml (0.00-0.05) 11/13/16 16:30 B-Natriuretic Peptide 15.59 pg/ml (5-125) 11/13/16 14:00 Total Protein 7.8 g/dl (6.4-8.2) 11/13/16 13:05 Albumin 4.4 g/dl (3.4-5.0) D 11/13/16 13:05 Pt ambulatory without assistance. Vitals stable. Pt reports he feels at his baseline, was seen eating meal in ER, tolerating PO without issue. Does not appear to be in any acute pain or distress at this time. Clinically stable for DC. Pt instructed to f/u with [facility] for PMD. <Yoel Brooks - Last Filed: 11/14/16 09:33> *DC/Admit/Observation/Transfer - Attestations Scribe Attestion: 11/13/16 17:50 Documentation prepared by Noah Rubi, acting as manager medical affairs for Yoel Brooks MD. <Noah Rubi - Last Filed: 11/13/16 17:49> - Attestations Physician Attestion: 11/13/16 17:48 I, Dr. Yoel Brooks MD, attest that this document has been prepared under my direction and personally reviewed by me in its entirety. I further attest, that it accurately reflects all work, treatment, procedures and medical decision -making performed by me. <Yoel Brooks - Last Filed: 11/14/16 09:33> Diagnosis at time of Disposition: Chest pain - Discharge Dispostion Disposition: HOME Condition at time of disposition: Stable - Patient Instructions Additional Instructions: You must establish a primary care doctor for your chronic pain. You can visit the [facility] at [address] [facility]. Call [phone] to make an appointment. They are open from 8am to 5pm. Print Language: NIUEAN - Post Discharge Activity Work/School Note: Back to Work
[2016-11-13] MEDS ORDERED: LOPERAMIDE HCL 2 MG CAPSULE ONE (14:23)
[2016-11-13 14:36] LABS: ALBUMIN 4.4 g/dl (3.4-5.0); ALK PHOS 77 U/L (45-117); ANION GAP 9 (8-16); BILIRUBIN,TOTAL 0.7 mg/dL (0.2-1.0); CALCIUM 9.3 mg/dL (8.5-10.1); CO2 28 mmol/L (21-32); CREATININE 0.9 mg/dL (0.7-1.3); GLUCOSE,RANDOM 92 mg/dL (74-106); SGOT/AST 22 U/L (15-37); SGPT/ALT 26 U/L (12-78); TOT PROT 7.8 g/dl (6.4-8.2)
[2016-11-13 14:52] LABS: INR 0.99 (0.82-1.09); PROTHROMBIN TIME (PATIENT) 10.9 SEC (9.98-11.88)
[2016-11-13 14:55] LABS: ACTIVATED PTT 36.3 SECONDS (26.9-34.4)
[2016-11-13 15:12] LABS: CPK 189 IU/L (39-308); TROPONIN I < 0.02 ng/ml (0.00-0.05)
[2016-11-13 17:59] VITALS: BP 138/68; PULSE 68; TEMP 98.3
--- NOTE | 2016-11-14 11:13 | EKG ---
Test Reason : Blood Pressure : / mmHG Vent. Rate : 068 BPM Atrial Rate : 068 BPM P-R Int : 160 ms QRS Dur : 080 ms QT Int : 416 ms P-R-T Axes : 038 053 028 degrees QTc Int : 442 ms NORMAL SINUS RHYTHM NORMAL ECG WHEN COMPARED WITH ECG OF 03-APR-2016 23:43, NONSPECIFIC T WAVE ABNORMALITY NOW EVIDENT IN ANTERIOR LEADS Confirmed by ROSS ARITA MD ([id number]) on 11/14/2016 11:13:28 AM Referred By: Confirmed By:ROSS ARITA MD
== END 2016-11-13 17:56 | disposition home or self-care (01) ==
LOC: JER 10:43
PROC: 3E0337Z Introduction of Electrolytic and Water Balance Substance into Peripheral Vein, Percutaneous Approach (ICD-10-PCS; principal; 2016-11-13)
PROC: 3E0333Z Introduction of Anti-inflammatory into Peripheral Vein, Percutaneous Approach (ICD-10-PCS; 2016-11-13)
DX: I10 Essential (primary) hypertension (principal); Z87.442 Personal history of urinary calculi; Z87.19 Personal history of other diseases of the digestive system
CPT/HCPCS: 36415; 71020-TC; 80053; 82553; 83880; 84484; 85025; 85379; 85610; 85730; 93005; 93010; 99282-25

== ENCOUNTER 2016-12-14 00:42 | Emergency (ER) | payer SELFPAY ==
[2016-12-14 00:55] VITALS: BP 120/76; PULSE 76; TEMP 97; BMI 25.7
--- NOTE | 2016-12-14 01:35 | PDOC ---
History of Present Illness - General Chief Complaint: Injury Stated Complaint: INJURY,EYE Time Seen by Provider: 12/14/16 01:05 History Source: Patient Exam Limitations: No Limitations - History of Present Illness Initial Comments: 12/14/16 01:34 46yo Male patient presents to ED with family c/o head injury with laceration. Patient states he was out drinking at a bar "3 beers." He states he does not know how he got injured and after further questioning states he fell and hit his head. He denies LOC, dizziness, h/a, neck pain, confusion, disorientation, back pain, or any other complaints at this time. Reports Tetanus vaccination: 6 [address] ago[address] Patient refuses CT- Head/Neck at this time. Occurred: reports: just prior to arrival. denies: this morning, this afternoon , this evening, yesterday, last week, other Severity: denies: mild, moderate, severe Pain Location: reports: head. denies: none, abdomen, back, chest, face, lower extremity, mouth, neck, other, pelvis, upper extremity Method of Injury: Yes: fall. No: unknown, assault, direct blow, motor vehicle crash, other Modifying Factors: worse with: None, cold therapy, immobilization, pain medication, rest, other Loss of Consciousness: no loss of consciousness Associated Symptoms (Fall): denies symptoms Past History - Travel Traveled outside of the country in the last 30 days: No Close contact w/someone who was outside of country & ill: No - Past Medical History Allergies/Adverse Reactions: Allergies Allergy/AdvReac Type Severity Reaction Status Date / Time No Known Allergies Allergy Verified 12/14/16 00:55 Anemia: No Asthma: No Cancer: No Cardiac Disorders: No CVA: No COPD: No CHF: No Dementia: No Diabetes: No GI Disorders: Yes (gastric ulcer) Disorders: (Kidney stones.) HTN: Yes Hypercholesterolemia: No Kidney Stones: Yes Liver Disease: No (DENIES) Seizures: No Thyroid Disease: No - Surgical History Abdominal Surgery: Yes (blood clot,cyst) Appendectomy: No Cardiac Surgery: No Cholecystectomy: No GI Surgery: Yes Lung Surgery: No Neurologic Surgery: No Orthopedic Surgery: No - Family Disease History Family Disease History: Diabetes: Father, Heart Disease: Father - Immunization History Td Vaccination: Yes Immunization Up to Date: Yes - Suicide/Smoking/Psychosocial Hx Smoking Status: Yes Smoking History: Current every day smoker Have you smoked in the past 12 months: Yes Number of Cigarettes Smoked Daily: 5 Cigars Per Day: 0 Information on smoking cessation initiated: No 'Breaking Loose' booklet given: 11/13/16 Hx Alcohol Use: Yes (SOCIAL) Drug/Substance Use Hx: No Substance Use Type: None, Marijuana Hx Substance Use Treatment: No Trauma Specific PMHX - Complaint Specific PMHX Arthritis: No Back Injury: Yes Neck Injury: Yes Hx Sacro Iliac Joint Dysfunction: No Review of Systems - Review of Systems Able to Perform ROS?: Yes Is the patient limited Nigerien proficient: No HEENTM: Yes: Other (Head Injury) Integumentary: Yes: Other (Laceration) Neurological: No: Headache, Seizure, Unsteady Gait, Ataxia, Dizziness All Other Systems: Reviewed and Negative *Physical Exam - Vital Signs Last Vital Signs Temp Pulse Resp BP Pulse Ox 97 F L 76 19 120/76 99 12/14/16 00:52 12/14/16 00:52 12/14/16 00:52 12/14/16 00:52 12/14/16 00:52 - Physical Exam General Appearance: Yes: Nourished, Appropriately Dressed. No: Apparent Distress, Mild Distress, Moderate Distress, Severe Distress HEENT: positive: EOMI, HUNTER, Normal ENT Inspection, Normal Voice, Symmetrical, TMs Normal, Pharynx Normal, Other (Laceration behind left ear, above mastoid bone.). negative: Pharyngeal Erythema, Tonsillar Exudate, Tonsillar Erythema, Nasal Congestion, Rhinorrhea, Sinus Tenderness, TM Bulging, TM Dull Neck: positive: Trachea midline, Supple. negative: Lymphadenopathy (R), Lymphadenopathy (L), Tender lateral, Tender midline Respiratory/Chest: positive: Lungs Clear, Normal Breath Sounds. negative: Chest Tender, Respiratory Distress, Accessory Muscle Use, Labored Respiration, Rapid RR Cardiovascular: positive: Regular Rhythm, Regular Rate Musculoskeletal: positive: Normal Inspection. negative: CVA Tenderness Extremity: positive: Normal Capillary Refill, Normal Inspection, Normal Range of Motion. negative: Pedal Edema, Swelling, Calf Tenderness, Erythema, Inflammation Integumentary: positive: Normal Color, Dry, Warm, Other (2 cm Laceration behind left ear.) Neurologic: positive: roller hand II-XII NML intact, Fully Oriented, Alert, Normal Mood/ Affect, Normal Response, Motor Strength 5/5 Procedures - Laceration/Wound Repair Left Ear Wound Length: to 2.5 cm Wound Explored: clean Wound's Depth, Shape: linear (Subcutaneous.) Irrigated w/ Saline: Yes Betadine Prep: Yes Anesthesia: 1% Lidocaine Amount of Anesthetic (ccs): 5 Wound Repaired With: Sutures Suture Size/Type: 4:0 Number of Sutures: 5 Layer Closure: No *DC/Admit/Observation/Transfer Diagnosis at time of Disposition: Laceration Head injury Qualifiers: Encounter type: initial encounter Qualified Code(s): S09.90XA - Unspecified injury of head, initial encounter - Discharge Dispostion Disposition: HOME Condition at time of disposition: Stable Admit: No - Patient Instructions Printed Discharge Instructions: DI for Closed Head Injury, DI for Suture Removal, DI for Laceration Repair -- Simple Additional Instructions: Follow up with your doctor or return to this emergency department in 7 days for suture removal. Return if condition worsens, or any concerns. Apply ice to affected area every 3 hours on and off for 20 mins. Tylenol for pain as needed. You may also come back if you change your mind about having the cat scan of your head and neck. Print Language: MALTESE
--- NOTE | 2016-12-14 01:40 | PDOC ---
*Physical Exam - Vital Signs Last Vital Signs Temp Pulse Resp BP Pulse Ox 97 F L 76 19 120/76 99 12/14/16 00:52 12/14/16 00:52 12/14/16 00:52 12/14/16 00:52 12/14/16 00:52 Medical Decision Making - Medical Decision Making 12/14/16 01:40 Pt seen by the Advanced Practice Provider under my direct supervision CHECO Pearson Ancillary studies reviewed I agree with plan as outlined by the Advanced Practice Provider
== END 2016-12-14 02:09 | disposition home or self-care (01) ==
LOC: JER 00:42
PROC: 0HQ3XZZ Repair Left Ear Skin, External Approach (ICD-10-PCS; principal; 2016-12-14)
DX: S01.312A Laceration without foreign body of left ear, initial encounter (principal); W01.10XA Fall on same level from slipping, tripping and stumbling with subsequent striking against unspecified object, initial encounter; Y93.89 Activity, other specified; Y92.89 Other specified places as the place of occurrence of the external cause; F17.210 Nicotine dependence, cigarettes, uncomplicated; I10 Essential (primary) hypertension; Z87.442 Personal history of urinary calculi; Z87.19 Personal history of other diseases of the digestive system
CPT/HCPCS: 99281-25

== ENCOUNTER 2017-01-02 01:06 | Observation (INO) | payer OTHER ==
--- NOTE | 2017-01-02 01:57 | PDOC ---
Attending Attestation - Resident Resident Name: NinoAmilcar prakash - ED Attending Attestation I have performed the following: I have examined & evaluated the patient, The case was reviewed & discussed with the resident, I agree w/resident's findings & plan, Exceptions are as noted <Abram Pearson - Last Filed: 01/02/17 01:57> - HPI HPI: 01/02/17 01:58 Pt is a 46 yo M with a PMHx of hypertension, gastric ulcer(s/p laparotomy of perforated duodenal ulcer on 12/13/15), colitis, kidney stones(s/p stents), and chronic back pain, who presents to the emergency department complaining of lower back pain s/p mechanical fall today. Patient states he had a beer today and tripped. Patient reports back pain is exacerbated upon deep inspiration, and radiates down legs. Patient denies any weakness, numbness, tingling, bowel/ urine incontinence. - Physicial Exam PE: 01/02/17 02:03 GENERAL: Well developed, well nourished. Awake and alert. In no acute distress. HEENT: Normocephalic, atraumatic. PERRLA, EOMI. No conjunctival pallor. Sclerae are non -icteric. Moist mucous membranes. Oropharynx is clear. NECK: Supple. Full ROM. No JVD. Carotid pulses 2+ and symmetric, without bruits. No thyromegaly. No lymphadenopathy. CARDIOVASCULAR: Regular rate and rhythm. No murmurs, rubs, or gallops. Distal pulses are 2+ and symmetric. PULMONARY: No evidence of respiratory distress. Lungs clear to auscultation bilaterally. No wheezing, rales or rhonchi. ABDOMINAL: Soft. Non-tender. Non-distended. No rebound or guarding. No organomegaly. Normoactive bowel sounds. MUSCULOSKELETAL Normal range of motion at all joints. No bony deformities or tenderness. No CVA tenderness. EXTREMITIES: No cyanosis. No clubbing. No edema. No calf tenderness. SKIN: Warm and dry. Normal capillary refill. No rashes. No jaundice. NEUROLOGICAL: Alert, awake, appropriate. Cranial nerves 2-12 intact. No deficits to light touch and temperature in face, upper extremities and lower extremities. No motor deficits in the in face, upper extremities and lower extremities. Normoreflexic in the upper and lower extremities. Normal speech. Toes are downgoing bilaterally. PSYCHIATRIC: Cooperative. Good eye contact. Appropriate mood and affect. - Medical Decision Making 01/02/17 02:04 Documentation prepared by Leidy Leiva, acting as medical charge entry specialist for Abram Pearson DO. <Leidy Leiva - Last Filed: 01/02/17 02:04>
[2017-01-02] MEDS ORDERED: KETOROLAC TROMETHAMINE 60 MG/2 ML VIAL IM ONE (02:00)
[2017-01-02] MEDS ORDERED: KETOROLAC TROMETHAMINE 60 MG/2 ML VIAL ONE (02:30)
--- NOTE | 2017-01-02 02:31 | PDOC ---
History of Present Illness - General Chief Complaint: Pain, Acute Stated Complaint: PAIN Time Seen by Provider: 01/02/17 01:47 History Source: Patient Exam Limitations: No Limitations, Intoxication - History of Present Illness Initial Comments: 01/02/17 02:18 The patient is a 46M with a PMH of alcoholism who presents to the ED s/p fall in his bathtub. The patient states that he slipped and fell on his R side, specifically on his hip. He has chronic back pain. He is complaining of a sharp pain radiating down his femur. He has no other complaints. Denies arm pain, hand pain, CP, SOB, bleeding from his urethra. Past History - Past Medical History Allergies/Adverse Reactions: Allergies Allergy/AdvReac Type Severity Reaction Status Date / Time No Known Allergies Allergy Verified 01/02/17 01:26 Home Medications: Ambulatory Orders NK [No Known Home Medication] 01/02/17 Anemia: No Asthma: No Cancer: No Cardiac Disorders: No CVA: No COPD: No CHF: No Dementia: No Diabetes: No GI Disorders: Yes (gastric ulcer) Disorders: (Kidney stones.) HTN: Yes Hypercholesterolemia: No Kidney Stones: Yes Liver Disease: No (DENIES) Seizures: No Thyroid Disease: No - Surgical History Abdominal Surgery: Yes (blood clot,cyst) Appendectomy: No Cardiac Surgery: No Cholecystectomy: No GI Surgery: Yes Lung Surgery: No Neurologic Surgery: No Orthopedic Surgery: No - Family Disease History Family Disease History: Diabetes: Father, Heart Disease: Father - Immunization History Td Vaccination: Yes Immunization Up to Date: Yes - Suicide/Smoking/Psychosocial Hx Smoking Status: Yes Smoking History: Current every day smoker Have you smoked in the past 12 months: Yes Number of Cigarettes Smoked Daily: 5 Cigars Per Day: 0 'Breaking Loose' booklet given: 11/13/16 Hx Alcohol Use: Yes (SOCIAL) Drug/Substance Use Hx: No Substance Use Type: None, Marijuana Hx Substance Use Treatment: No Review of Systems - Review of Systems Able to Perform ROS?: Yes Is the patient limited Swedish proficient: No Constitutional: No: Chills, Fever HEENTM: No: Eye Pain, Blurred Vision Respiratory: No: Cough, Shortness of Breath Cardiac (ROS): No: Chest Pain, Lightheadedness, Palpitations ABD/GI: No: Nausea, Vomiting : No: Burning, Dysuria, Hematuria Musculoskeletal: Yes: Back Pain (chronic), Joint Pain (R hip), Muscle Pain Integumentary: No: Bruising Neurological: No: Headache, Numbness, Tingling, Weakness *Physical Exam - Physical Exam General Appearance: Yes: Nourished, Appropriately Dressed, Alcohol on Breath HEENT: positive: Normal Voice, Hearing Grossly Normal Respiratory/Chest: positive: Lungs Clear, Decreased Breath Sounds. negative: Chest Tender, Normal Breath Sounds (decreased breath sounds on R side) Cardiovascular: positive: Regular Rhythm, Regular Rate, S1, S2. negative: Diastolic Murmur, Systolic Murmur Gastrointestinal/Abdominal: positive: Flat, Soft. negative: Tender Extremity: positive: Normal Inspection, Normal Range of Motion. negative: Swelling, Calf Tenderness Integumentary: positive: Dry, Warm Neurologic: positive: Alert, Normal Mood/Affect ED Treatment Course - LABORATORY CBC & Chemistry Diagram: 01/02/17 18:30 01/02/17 18:30 - RADIOLOGY Radiology Studies Ordered: Category Date Time Status CHEST CT WITHOUT CONTRAST [CT] Stat CT Scan 01/02/17 01:[address] W/O CONTRAST [CT] Stat CT Scan 01/02/17 01:[address] WITHOUT CONTRAST [CT] Stat CT Scan 01/02/17 01:59 Ordered Medical Decision Making - Medical Decision Making 01/02/17 02:32 The patient is a 46M with a PMH of alcoholism who had a mechanical fall on his R hip. Will order appropriate imaging and reassess. Toradol for pain control 2/ 2 alcoholism. 01/02/17 04:[address] lumbar shows nondisplaced fx of R transverse processess of L1-L3. Pain management and will reassess with day radiologist in house. Patient is sleeping comfortably. 01/02/17 06:12 The patient is requiring more medication. With his history of alcoholism, I am cautious with ordering opioids but he has 3 TP fx's. I will order opioid medications until the official read is done in the morning. 01/02/17 06:59 Signed out to day team, Dr. Godinez. *DC/Admit/Observation/Transfer Diagnosis at time of Disposition: Intractable back pain, Radiculopathy of lumbar region Lumbar transverse process fracture Qualifiers: Encounter type: initial encounter Fracture type: closed Qualified Code(s): S32.009A - Unspecified fracture of unspecified lumbar vertebra, initial encounter for closed fracture
[2017-01-02 02:35] VITALS: BMI 26.5
[2017-01-02] MEDS ORDERED: morphine CARPU-JECT 4 MG/1 ML DISP.SYRIN IVPUSH ONE ×3 (04:12→11:21)
[2017-01-02] MEDS ORDERED: morphine CARPU-JECT 2 MG/1 ML DISP.SYRIN ONE ×3 (04:26→11:28)
--- NOTE | 2017-01-02 07:25 | PDOC ---
*Physical Exam - Vital Signs Last Vital Signs Temp Pulse Resp BP Pulse Ox 98.7 F 75 18 125/73 100 01/02/17 02:33 01/02/17 02:33 01/02/17 02:33 01/02/17 02:33 01/02/17 02:33 - Physical Exam Comments: GENERAL: AAOx3, mildly disheveled, nourished and generally well appearing, moderate distress 2/2 pain HEAD: NCAT EYES: PERRLA, EOMI, sclera anicteric, conjunctiva clear ENT: Auricles normal inspection, hearing grossly normal, nares patent, no nasal discharge, no congestion, oropharynx clear without exudates, MMM NECK: supple, no midline tenderness, normal ROM, no LAD, no JVD, no masses, c/o lower back pain on flexion. RESP: speaking in full sentences, lungs CTAB, symmetrical chest expansion, no respiratory distress HEART: RRR, normal S1-S2, no MRG, peripheral pulses normal and equal bilaterally ABDOMEN: soft, NTND, nlBSx4, no guarding, no rebound, no masses MUSCULOSKELETAL: Lumbar exquisitely ttp, pain on minimal leg raise EXTREMITIES: normal inspection, moving all extremities, full ROM, strength 5/5, LE movement limited by pain, sensation grossly intact. NEUROLOGICAL: CN II-XII grossly intact, normal speech, gait limited by pain, no focal sensorimotor deficits SKIN: warm, dry, normal turgor, no rashes or lesions noted. ED Treatment Course - LABORATORY CBC & Chemistry Diagram: 01/02/17 18:30 01/02/17 18:30 - Medications Given in the ED: ED Medications Discontinued Medications Generic Name Dose Route Start Last Admin Trade Name Shantell PRN Reason Stop Dose Admin Ketorolac Tromethamine 60 mg 01/02/17 02:00 01/02/17 02:36 Toradol Injection - IM 01/02/17 02:01 60 mg ONCE ONE Administration Morphine Sulfate 2 mg 01/02/17 04:12 01/02/17 04:29 Morphine Injection - IVPUSH 01/02/17 04:13 2 mg ONCE ONE Administration Morphine Sulfate 2 mg 01/02/17 06:11 01/02/17 06:33 Morphine Injection - IVPUSH 01/02/17 06:12 2 mg ONCE ONE Administration Progress Note - Progress Note Progress Note: Patient is a stable 46 year old male signed out to me by Dr. Hinojosa History of alcohol abuse Presenting s/p slip and fall in the bathroom with lower back pain [place] read of CT positive for transverse process fracture L1, L2, L3 and chronic degenerative changes - Review official morning CT read - Consult neuro surgery - Pain control - Obs versus D/C with F/U depending on Neurosurg and pain control Medical Decision Making - Medical Decision Making 01/02/17 09:46 46 yo male with nondisplaced spinus process fx of L1-L3 and chronic degenerative changes demonstrated on CT, unable to stand or ambulate 2/2 pain. Ddx includes but is not limited to spinus process fractures, additional lumbar fractures, intoxication, intractable pain Review official CT read Discuss disposition with neurosurgery pain management DC vs Obs Patient is awake, alert and appropriately answering all questions. Does not appear intoxicated and moving all extremities. Strength and sensation are intact with no neurological deficits. Spoke with Neurosurgery who does not feel patient needs admission or followup for spinus process fractures. Patient should followup with PCP or auto body painter. If patient wants evaluation for chronic degenerative changes he can follow up in the neuro surgery clinic. Unable to manage pain with 2x percocet. Patient is unable to stand or ambulate without significant pain and difficulty. Admission warranted for observation, pain control and evaluation of disposition. 01/02/17 10:25 Microblogged symphony 01/02/17 10:56 Spoke with LOOM CHANGER who agreed to have patient admitted to obs under Dr. Marquez Admission order entered 01/02/17 11:22 Patient continues c/o significant pain and was given 4mg morphine. 01/02/17 11:59 Pain moderately improved with morphine Patient sitting in wheel chair stating he feels mildly better. Requesting to go outside for "fresh air" and was informed that he had been admitted and could not leave the hospital if he wishes to stay for pain control. *DC/Admit/Observation/Transfer Diagnosis at time of Disposition: Intractable back pain, Radiculopathy of lumbar region Lumbar transverse process fracture Qualifiers: Encounter type: initial encounter Fracture type: closed Qualified Code(s): S32.009A - Unspecified fracture of unspecified lumbar vertebra, initial encounter for closed fracture - Discharge Dispostion Admit: Yes
[2017-01-02 09:48] LABS: URINE APPEARANCE CLEAR; URINE BILIRUBIN NEGATIVE (NEGATIVE); URINE BLOOD NEGATIVE (NEGATIVE); URINE COLOR YELLOW; URINE GLUCOSE (UA) NEGATIVE (NEGATIVE); URINE KETONE NEGATIVE (NEGATIVE); URINE NITRITE NEGATIVE (NEGATIVE); URINE PROTEIN NEGATIVE (NEGATIVE); URINE UROBILINOGEN NEGATIVE mg/dL (0.2-1.0)
[2017-01-02 11:40] LABS: URINE MARIJUANA THC POSITIVE ng/ml (CUTOFF=50)
[2017-01-02] MEDS ORDERED: morphine CARPU-JECT 2 MG/1 ML DISP.SYRIN IVPUSH PRN (11:42)
--- NOTE | 2017-01-02 14:55 | HP ---
CHIEF COMPLAINT: Back pain PCP: None HISTORY OF PRESENT ILLNESS: 46 year-old male with a PMH significant for HTN, perforation of duodenal ulcer and pneumoperitoneum s/p surgical repair (11/2015), colitis, kidney stones s/p stents, and alcohol abuse. Patient presented to the ED after slipping in the bathtub on a bar of soap and landing on his right side. He complains of right lower back pain that radiates down his right leg. He is able to stand but with pain. Patient states he drank one beer prior to falling. He denies drinking every day. Review of EMR and I-STOP done. Periodic ED visits related to drinking , injuries, and pain management. ER course was notable for: (1) CT: nondisplaced fracture of right transverse processes L1, L2, L3 (2) Utox negative for alcohol, positive for THC Recent Travel: No PAST MEDICAL HISTORY: Hypertension (in chart history but patient denies) Gastric ulcer Colitis Kidney stones Alcohol abuse PAST SURGICAL HISTORY: Gastric ulcer surgical repair 11/2015 Renal stents Social History: Smoking: current everyday Alcohol: denies every day, occasional Drugs: denies but urine + THC Family History: Allergies No Known Allergies Allergy (Verified 01/02/17 01:26) HOME MEDICATIONS: Home Medications Medication Instructions Recorded NK [No Known Home Medication] 01/02/17 REVIEW OF SYSTEMS CONSTITUTIONAL: Absent: fever, chills, diaphoresis, generalized weakness, malaise, loss of appetite, weight change HEENT: Absent: rhinorrhea, nasal congestion, throat pain, throat swelling, difficulty swallowing, mouth swelling, ear pain, eye pain, visual changes CARDIOVASCULAR: Absent: chest pain, syncope, palpitations, irregular heart rate, lightheadedness , peripheral edema RESPIRATORY: Absent: cough, shortness of breath, dyspnea with exertion, orthopnea, wheezing, stridor, hemoptysis GASTROINTESTINAL: Absent: abdominal pain, abdominal distension, nausea, vomiting, diarrhea, constipation, melena, hematochezia GENITOURINARY: Absent: dysuria, frequency, urgency, hesitancy, hematuria, flank pain, genital pain MUSCULOSKELETAL: Present: back pain radiating down right leg Absent: myalgia, arthralgia, joint swelling, back pain, neck pain SKIN: Absent: rash, itching, pallor HEMATOLOGIC/IMMUNOLOGIC: Absent: easy bleeding, easy bruising, lymphadenopathy, frequent infections ENDOCRINE: Absent: unexplained weight gain, unexplained weight loss, heat intolerance, cold intolerance NEUROLOGIC: Absent: headache, focal weakness or paresthesias, dizziness, unsteady gait, seizure, mental status changes, bladder or bowel incontinence PSYCHIATRIC: Absent: anxiety, depression, suicidal or homicidal ideation, hallucinations. PHYSICAL EXAMINATION Vital Signs - 24 hr 01/02/17 01/02/17 11:12 14:26 Temperature 98.2 F 97.4 F L Pulse Rate 60 Pulse Rate [ 68 Left Apical] Respiratory 18 20 Rate Blood Pressure 151/60 Blood Pressure 123/60 [Right Arm] O2 Sat by Pulse 97 Oximetry (%) GENERAL: Awake, alert, and fully oriented, in no acute distress. HEAD: Normal with no signs of trauma. EYES: Pupils equal, round and reactive to light, extraocular movements intact, sclera anicteric, conjunctiva clear. No ptosis. EARS, NOSE, THROAT: Ears normal, nares patent, oropharynx clear without exudates. Moist mucous membranes. NECK: Normal range of motion, supple without lymphadenopathy, JVD, or masses. LUNGS: Breath sounds equal, clear to auscultation bilaterally. No wheezes, and no crackles. No accessory muscle use. HEART: Regular rate and rhythm, normal S1 and S2 without murmur, rub or gallop. ABDOMEN: Soft, nontender, not distended, normoactive bowel sounds, no guarding, no rebound, no masses. No hepatomegaly or splenomegaly. MUSCULOSKELETAL: Normal range of motion at all joints. No bony deformities or tenderness. No CVA tenderness. UPPER EXTREMITIES: 2+ pulses, warm, well-perfused. No cyanosis. No clubbing. No peripheral edema. LOWER EXTREMITIES: 2+ pulses, warm, well-perfused. No calf tenderness. No peripheral edema. NEUROLOGICAL: Cranial nerves II-XII intact. Normal speech. Able to stand. Gait not observed. Laboratory Results - last 24 hr 01/02/17 01/02/17 11:00 11:12 Opiates Screen Positive Methadone Screen Negative Barbiturate Screen Negative Phencyclidine Screen Negative Ur Amphetamines Screen Negative MDMA (Ecstasy) Screen Negative Benzodiazepines Screen Negative Cocaine Screen Negative U Marijuana (THC) Screen Positive Alcohol, Quantitative < 5.0 ASSESSMENT/PLAN: 46 year-old male with a PMH significant for 46 year-old male with a PMH significant for HTN, perforation of duodenal ulcer and pneumoperitoneum s/p surgical repair (11/2015), colitis, kidney stones s/p stents, and alcohol abuse. Fell in the bathtub and placed on observation for fracture of transverse processes at L1, L2, L3. Fracture of transverse processes at L1, L2, L3 --seen and evaluated by ortho, no surgical intervention --d/c'd morphine; oxycodone and Tylenol for pain --PT evaluation in the morning, WBAT --ISTOP reviewed, Reference #: [id number]: Patient Name: Júnior Carmichael Date: 1970 Address: [address] [place] [address] Sex: Male 10/18/2016 10/18/2016 oxycodone-acetaminophen 5-325 mg tab 20 10 Ervin Perry MD 08/13/2016 08/14/2016 hydrocodone-acetaminophen 7.5-325 mg tablet 30 15 Ervin Perry MD 07/28/2016 07/29/2016 oxycodone-acetaminophen 5-325 mg tab 20 10 Ervin Perry MD 01/26/2016 01/26/2016 oxycodone-acetaminophen 5-325 mg tab 14 4 Farooq Ayala MD 01/19/2016 01/19/2016 oxycodone hcl 5 mg tablet 10 3 Argenis Sorenson ([facility]) Patient Name: Júnior Carmichael Date: 1970 Address: [address] [place] [address] Sex: Male Rx Written Rx Dispensed Drug Quantity Days Supply Prescriber Name 06/17/2016 06/17/2016 oxycodone-acetaminophen 5-325 mg tab 12 2 Jannie Cruz 05/16/2016 05/16/2016 oxycodone-acetaminophen 5-325 mg tab 5 1 Anna Ramirez MD Hypertension --BP is controlled, on no home meds h/o duodenal ulcer s/p surgical repair --on no meds --labs pending h/o kidney stones --no acute issues Alcohol abuse --denies every day drinking, occasional beer --no signs of alcohol withdrawal Dispo: continues to require observation. Full Code. Visit type - Emergency Visit Emergency Visit: Yes ED Registration Date: 01/02/17 Care time: The patient presented to the Emergency Department on the above date and was hospitalized for further evaluation of their emergent condition. - New Patient This patient is new to me today: Yes Date on this admission: 01/02/17 - Critical Care Critical Care patient: No
[2017-01-02 15:15] LABS: URINE LEUK ESTERASE Negative (NEGATIVE)
--- NOTE | 2017-01-02 16:37 | PN ---
Progress Note (short form) - Note Progress Note: Pt seen and examined. He fell backwards at home in his bath tub, hit his back on the edge of the tub. PE He c/o pain in the low back, more on the right at the L5 level. + tender to palpation in this area B/L upper and lower extremitis are NVI, with nl ROM without pain. He does go into spasm with motion of the lumbar spine. Xrays Show acute fractures of the transverse processes at L1, L2, L3. Imp As above Rec P.T. for transfers and ambulation. WBAT No heavy lifting Can be DC'd from an orthopedic pov
[2017-01-02] MEDS: oxyCODONE HCL 5 MG TABLET PO PRN (18:23)
[2017-01-02] MEDS: ACETAMINOPHEN 325 MG TABLET (FP) PO PRN (18:30)
[2017-01-02 19:30] LABS: BASOPHIL 0.7 % (0-2.0); EOSINOPHIL 3.7 % (0-4.5); MCH 31.4 pg (25.7-33.7); MCHC 33.5 g/dl (32.0-35.9); MEAN CELL VOLUME 93.7 fl (80-96); MEAN PLT VOLUME 9.4 fl (7.5-11.1); PLATELET COUNT 247 K/MM3 (134-434); RDW 14.9 % (11.9-15.9); WHITE BLOOD COUNT 8.3 K/mm3 (4.0-10.0)
[2017-01-02 20:37] LABS: ANION GAP 5 (8-16); CALCIUM 8.8 mg/dl (8.4-10.2); CO2 33 mmol/L (22-28); CREATININE 1.5 mg/dl (0.6-1.3); GLUCOSE,RANDOM 88 mg/dl (74-106); MAGNESIUM 2.5 mg/dL (1.8-2.4); TOT PROT 6.6 g/dl (6.4-8.3)
[2017-01-02 20:38] LABS: ALBUMIN 3.6 g/dl (3.5-5.0); ALK PHOS 73 U/L (32-92); BILIRUBIN,TOTAL 0.4 mg/dl (0.2-1.0); SGOT/AST 22 U/L (10-42); SGPT/ALT 29 U/L (10-40)
[2017-01-03] MEDS: ACETAMINOPHEN 325 MG TABLET (FP) PO PRN ×3 (00:59→12:39)
[2017-01-03] MEDS: oxyCODONE HCL 5 MG TABLET PO PRN ×3 (01:00→12:39)
[2017-01-03] MEDS: HEPARIN NA (PORCINE) 5,000 UNITS/ML 1ML VIAL SQ SCH ×2 (06:34→13:59)
[2017-01-03 09:23] VITALS: BP 137/90; PULSE 65; TEMP 97.6
--- NOTE | 2017-01-03 10:10 | PN ---
Progress Note (short form) - Note Progress Note: Ortho Pt seen and examined s/p L1-3 transverse process fx- feeling better decr pain, incr rom, no radiculopathy, no bowel/bladder dysfunction nvi a/p PT, wbat pain control may d/c from ortho pov f/u in the office in 10-14 days d/w Dr. Akers
[2017-01-03 10:25] LABS: BASOPHIL 0.9 % (0-2.0); EOSINOPHIL 3.9 % (0-4.5); MCH 30.9 pg (25.7-33.7); MCHC 32.5 g/dl (32.0-35.9); MEAN CELL VOLUME 95.1 fl (80-96); NEUTROPHILS 58.4 % (42.8-82.8); PLATELET COUNT 242 K/MM3 (134-434); RDW 15.1 % (11.9-15.9); WHITE BLOOD COUNT 6.1 K/mm3 (4.0-10.0)
[2017-01-03 10:48] LABS: ALBUMIN 3.5 g/dl (3.4-5.0); ANION GAP 4 (8-16); BILIRUBIN,TOTAL 0.4 mg/dL (0.2-1.0); CALCIUM 8.9 mg/dL (8.5-10.1); CO2 32 mmol/L (21-32); CREATININE 1.1 mg/dL (0.7-1.3); SGOT/AST 20 U/L (15-37); SGPT/ALT 28 U/L (12-78)
[2017-01-03 10:52] LABS: ALK PHOS 67 U/L (45-117); TOT PROT 6.6 g/dl (6.4-8.2)
--- NOTE | 2017-01-03 10:53 | DS ---
Physical Exam: SUBJECTIVE: Patient seen and examined at the bedside. He states oxycodone is helping his pain. States he fell in the shower when there was alot of soap at the bottom of the tub. OBJECTIVE: Serum glucose 48?, pt asymptomatic/has never been this low on previous labs. will do fingerstick now patient to follow up with clinic on january 07 and will have repeat labs Vital Signs Period Temp Pulse Resp BP Sys/Gautam Pulse Ox Last 24 Hr 97.4 F-98.3 F 60-73 17-20 123-151/60-90 97-97 PHYSICAL EXAM GENERAL: The patient is awake, alert, and fully oriented, in no acute distress. HEAD: Normal with no signs of trauma. EYES: PERRL, extraocular movements intact, sclera anicteric, conjunctiva clear. ENT: Ears normal, nares patent, oropharynx clear without exudates, moist mucous membranes. NECK: Trachea midline, full range of motion, supple. LUNGS: Breath sounds equal, clear to auscultation bilaterally, no wheezes, no crackles, no accessory muscle use. HEART: Regular rate and rhythm, S1, S2 without murmur, rub or gallop. ABDOMEN: Soft, nontender, nondistended, normoactive bowel sounds, no guarding, no rebound, no hepatosplenomegaly, no masses. EXTREMITIES: 2+ pulses, warm, well-perfused, no edema. NEUROLOGICAL: Cranial nerves II through XII grossly intact. Normal speech, gait not observed. PSYCH: Normal mood, normal affect. SKIN: Warm, dry, normal turgor, no rashes or lesions noted. LABS Laboratory Results - last 24 hr 01/02/17 01/02/17 01/02/17 11:00 11:12 18:30 WBC 8.3 RBC 4.67 Hgb 14.6 D Hct 43.7 MCV 93.7 MCH 31.4 MCHC 33.5 RDW 14.9 Plt Count 247 MPV 9.4 Neutrophils % 54.0 D Lymphocytes % 27.2 D Monocytes % 14.4 H Eosinophils % 3.7 Basophils % 0.7 Sodium Potassium Chloride Carbon Dioxide Anion Gap BUN Creatinine Creat Clearance w eGFR Random Glucose Calcium Magnesium Total Bilirubin AST ALT Alkaline Phosphatase Total Protein Albumin Opiates Screen Positive Methadone Screen Negative Barbiturate Screen Negative Phencyclidine Screen Negative Ur Amphetamines Screen Negative MDMA (Ecstasy) Screen Negative Benzodiazepines Screen Negative Cocaine Screen Negative U Marijuana (THC) Screen Positive Alcohol, Quantitative < 5.0 01/02/17 18:30 WBC RBC Hgb Hct MCV MCH MCHC RDW Plt Count MPV Neutrophils % Lymphocytes % Monocytes % Eosinophils % Basophils % Sodium 143 Potassium 4.9 Chloride 105 Carbon Dioxide 33 H Anion Gap 5 L BUN 13 Creatinine 1.5 H Creat Clearance w eGFR 50.38 Random Glucose 88 Calcium 8.8 Magnesium 2.5 H Total Bilirubin 0.4 AST 22 ALT 29 Alkaline Phosphatase 73 Total Protein 6.6 Albumin 3.6 Opiates Screen Methadone Screen Barbiturate Screen Phencyclidine Screen Ur Amphetamines Screen MDMA (Ecstasy) Screen Benzodiazepines Screen Cocaine Screen U Marijuana (THC) Screen Alcohol, Quantitative HOSPITAL COURSE: Date of Admission:01/02/17 Date of Discharge: 01/03/17 Discharge Summary Reason For Visit: INTRACTABLE BACK PAIN,FX OF TRANVERSE Current Active Problems Intractable back pain (Acute) Lumbar transverse process fracture (Acute) Radiculopathy of lumbar region (Acute) Condition: Stable - Instructions Diet, Activity, Other Instructions: Mr. Scott: You sustained an acute fracture of your L1 to L3 spine. No heavy lifting until cleared by your follow up appointment at the [address] [place] [address] on January 07. Please call me with any questions that you may have. [facility] [employer] [phone] [facility] Referrals: Daniel Everett MD [Staff Physician] - Disposition: HOME - Home Medications Comprehensive Discharge Medication List: Ambulatory Orders NK [No Known Home Medication] 01/02/17
[2017-01-03 11:29] LABS: GLUCOSE,RANDOM 48 mg/dL (74-106)
== END 2017-01-03 14:30 | disposition home or self-care (01) ==
LOC: JER 01:06 → JERBED 10:58 → J6S 14:14
PROVIDERS: ADMIT Internal Medicine; ATTEND Nurse Practitioner Family
PROC: 3E033NZ Introduction of Analgesics, Hypnotics, Sedatives into Peripheral Vein, Percutaneous Approach (ICD-10-PCS; principal; 2017-01-02)
PROC: 3E0233Z Introduction of Anti-inflammatory into Muscle, Percutaneous Approach (ICD-10-PCS; 2017-01-02)
DX: S32.018A Other fracture of first lumbar vertebra, initial encounter for closed fracture (principal); S32.028A Other fracture of second lumbar vertebra, initial encounter for closed fracture; S32.038A Other fracture of third lumbar vertebra, initial encounter for closed fracture; M54.16 Radiculopathy, lumbar region; M54.5 Low back pain; G89.29 Other chronic pain; I10 Essential (primary) hypertension; F17.210 Nicotine dependence, cigarettes, uncomplicated; Z87.11 Personal history of peptic ulcer disease; Z87.442 Personal history of urinary calculi; W01.0XXA Fall on same level from slipping, tripping and stumbling without subsequent striking against object, initial encounter; Y93.01 Activity, walking, marching and hiking; Y92.9 Unspecified place or not applicable
CPT/HCPCS: 36415; 71250-TC; 72131-TC; 72192-TC; 80053; 80307; 81003; 83735; 85025; 96372; 96374; 96376; 97116-GP; 97161-GP; 99285-25; G0378

== ENCOUNTER 2017-04-01 12:44 | Emergency (ER) | payer OTHER ==
[2017-04-01 13:11] VITALS: BP 141/92; PULSE 75; TEMP 98.7; BMI 30.9
--- NOTE | 2017-04-01 14:52 | PDOC ---
History of Present Illness - General Chief Complaint: Rash Stated Complaint: RASH Time Seen by Provider: 04/01/17 14:32 History Source: Patient Exam Limitations: No Limitations - History of Present Illness Initial Comments: 04/01/17 14:46 c/o abscesses to left wrist and abdomen started yesterday. pt has history of MRSA states they look and feel the same. Pt denies fever or chills works as a printing equipment mechanic. Past History - Past Medical History Allergies/Adverse Reactions: Allergies Allergy/AdvReac Type Severity Reaction Status Date / Time No Known Allergies Allergy Verified 04/01/17 13:07 Home Medications: Ambulatory Orders Mupirocin Ointment [Bactroban] 1 applic TP BID #1 tube 04/01/17 Oxycodone HCl/Acetaminophen [Percocet 5-325 mg Tablet] 1 tab PO Q6H PRN #10 tablet MDD 6 tabs 04/01/17 Sulfamethoxazole/Trimethoprim [Bactrim Ds -] 1 tab PO BID #14 tablet 04/01/17 Anemia: No Asthma: No Cancer: No Cardiac Disorders: No CVA: No COPD: No CHF: No DVT: No Dementia: No Diabetes: No GI Disorders: Yes (gastric ulcer) Disorders: (Kidney stones.) HTN: Yes Hypercholesterolemia: No Kidney Stones: Yes Liver Disease: No (DENIES) Seizures: No Thyroid Disease: No - Surgical History Abdominal Surgery: Yes (blood clot,cyst) Appendectomy: No Cardiac Surgery: No Cholecystectomy: No GI Surgery: Yes Lung Surgery: No Neurologic Surgery: No Orthopedic Surgery: No - Family Disease History Family Disease History: Diabetes: Father, Heart Disease: Father - Immunization History Td Vaccination: Yes Immunization Up to Date: Yes - Suicide/Smoking/Psychosocial Hx Smoking Status: Yes Smoking History: Current every day smoker Have you smoked in the past 12 months: Yes Number of Cigarettes Smoked Daily: 5 Cigars Per Day: 0 Information on smoking cessation initiated: No 'Breaking Loose' booklet given: 11/13/16 Hx Alcohol Use: No Drug/Substance Use Hx: No Substance Use Type: None, Marijuana Hx Substance Use Treatment: No *Physical Exam - Vital Signs Last Vital Signs Temp Pulse Resp BP Pulse Ox 98.7 F 75 16 141/92 98 04/01/17 13:09 04/01/17 13:09 04/01/17 13:09 04/01/17 13:09 04/01/17 13:09 - Physical Exam General Appearance: Yes: Nourished, Appropriately Dressed HEENT: positive: EOMI, HUNTER Neck: positive: Supple Respiratory/Chest: positive: Lungs Clear, Normal Breath Sounds Cardiovascular: positive: Regular Rhythm, Regular Rate Extremity: positive: Normal Capillary Refill, Other (left wrist with 2 1cm circumfrential abscesses, ingrown hairs with redness surrounding them non fluctunat, pinpoint centers) Integumentary: positive: Normal Color, Dry, Warm *DC/Admit/Observation/Transfer Diagnosis at time of Disposition: Abscess - Discharge Dispostion Disposition: HOME Condition at time of disposition: Good - Prescriptions Prescriptions: Mupirocin Ointment [Bactroban] 1 applic TP BID #1 tube Oxycodone HCl/Acetaminophen [Percocet 5-325 mg Tablet] 1 tab PO Q6H PRN #10 tablet MDD 6 tabs PRN Reason: Severe Pain Sulfamethoxazole/Trimethoprim [Bactrim Ds -] 1 tab PO BID #14 tablet - Referrals Referrals: Deann Campos MD [Staff Physician] - - Patient Instructions Additional Instructions: wash the area with warm soapy antibacterial soap and water 4-5 times a day take the medication as prescribed apply the ointment to the areas that are open or draining twice a day follow with the infectious disease doctor in none week if no improvement return to ER for any worsening symptoms - Post Discharge Activity
== END 2017-04-01 14:59 | disposition home or self-care (01) ==
LOC: JERFT 12:44
DX: L02.413 Cutaneous abscess of right upper limb (principal); L02.211 Cutaneous abscess of abdominal wall; L73.1 Pseudofolliculitis barbae; I10 Essential (primary) hypertension; Z87.442 Personal history of urinary calculi; Z87.19 Personal history of other diseases of the digestive system
CPT/HCPCS: 99281-25

== ENCOUNTER 2017-04-22 18:27 | Emergency (ER) | payer OTHER ==
--- NOTE | 2017-04-22 18:35 | PDOC ---
Rapid Medical Evaluation Time Seen by Provider: 04/22/17 18:34 Medical Evaluation: Allergies Allergy/AdvReac Type Severity Reaction Status Date / Time No Known Allergies Allergy Verified 04/22/17 18:34 04/22/17 18:36 46 year old male with history of HTN, perforation of duodenal ulcer and pneumoperitoneum s/p surgical repair (11/2015), colitis, kidney stones s/p stents, and alcohol abusem who presents with abdominal pain and vomiting after drinking "heavy alcohol" over the weekend. V/s notable for BP 157/101. -Labs including CBC, CMP, lipase, Ua -CXR to r/o free air -To Main ED for further evaluation
[2017-04-22 18:38] VITALS: BP 157/101; PULSE 85; TEMP 98.6; BMI 30.1
[2017-04-22 19:06] LABS: BASO % 0.9 % (0-2.0); EOS % 2.4 % (0-4.5); LYMPH % 20.9 % (8-40); MCH 32.5 pg (25.7-33.7); MCHC 34.1 g/dl (32.0-35.9); MEAN CELL VOLUME 95.3 fl (80-96); MEAN PLT VOLUME 8.9 fl (7.5-11.1); NEUT % 64.8 % (42.8-82.8); PLATELET COUNT 301 K/MM3 (134-434); RBC 4.93 M/mm3 (4.00-5.60); RDW 14.6 % (11.9-15.9); WHITE BLOOD COUNT 8.5 K/mm3 (4.0-10.0)
[2017-04-22 19:36] LABS: URINE APPEARANCE CLEAR; URINE BILIRUBIN NEGATIVE (NEGATIVE); URINE BLOOD 1+ (NEGATIVE); URINE COLOR AMBER; URINE GLUCOSE (UA) NEGATIVE (NEGATIVE); URINE KETONE TRACE (NEGATIVE); URINE LEUK ESTERASE NEGATIVE (NEGATIVE); URINE NITRITE NEGATIVE (NEGATIVE); URINE PROTEIN 2+ (NEGATIVE); URINE UROBILINOGEN 4.0 E.U/dl mg/dL (0.2-1.0)
[2017-04-22 19:38] LABS: ANION GAP 12 (8-16); BLOOD UREA NITROGEN 9 mg/dL (7-18); CALCIUM 9.7 mg/dL (8.5-10.1); CHLORIDE 100 mmol/L (98-107); CO2 25 mmol/L (21-32); CREATININE 1.1 mg/dL (0.7-1.3); GLUCOSE,RANDOM 163 mg/dL (74-106); POTASSIUM 4.3 mmol/L (3.5-5.1); SODIUM 137 mmol/L (136-145)
[2017-04-22 19:39] LABS: EPI CELLS RARE /HPF (FEW); URINE MUCUS MANY
[2017-04-22] MEDS ORDERED: ONDANSETRON 4 MG/2 ML VIAL IVPUSH ONE (19:39)
[2017-04-22] MEDS ORDERED: PANTOPRAZOLE SODIUM 40 MG VIAL IVPUSH ONE (19:39)
[2017-04-22] MEDS ORDERED: PANTOPRAZOLE SODIUM 40 MG VIAL ONE (19:55)
[2017-04-22] MEDS ORDERED: ONDANSETRON 4 MG/2 ML VIAL ONE (19:55)
--- NOTE | 2017-04-22 20:12 | PDOC ---
History of Present Illness - General History Source: Patient Exam Limitations: No Limitations - History of Present Illness Initial Comments: 04/22/17 22:45 The patient is a 46 year old male, with a significant past medical history of HTN, perforation of duodenal ulcer and pneumoperitoneum s/p surgical repair (2015), colitis, kidney stones s/p stents, and alcohol abuse, who presents to the emergency department with abdominal pain, nausea and vomiting. He reports that he had a weekend of heavy alcohol drinking. He describes his abdominal pain as diffused, ranging from mild to moderate, without radiation or modifying factors. He notes that his vomiting is nonbloody and nonbilious. The patient denies chest pain, shortness of breath, headache and dizziness. Denies fever, chills, diarrhea and constipation. Denies dysuria, frequency, urgency and hematuria. Allergies: None Past surgical history: None reported Social history: Marijuana Use. Cigarette use (5 daily) <Abram Asif - Last Filed: 04/22/17 22:45> <Marina Garcia - Last Filed: 04/22/17 22:55> - General Chief Complaint: Pain, Acute Stated Complaint: ABD PAIN Time Seen by Provider: 04/22/17 18:34 Past History <Abram Asif - Last Filed: 04/22/17 22:45> - Past Medical History Anemia: No Asthma: No Cancer: No Cardiac Disorders: No CVA: No COPD: No CHF: No DVT: No Dementia: No Diabetes: No GI Disorders: Yes (gastric ulcer) Disorders: (Kidney stones.) HTN: Yes Hypercholesterolemia: No Kidney Stones: Yes Liver Disease: No (DENIES) Seizures: No Thyroid Disease: No - Surgical History Abdominal Surgery: Yes (blood clot,cyst) Appendectomy: No Cardiac Surgery: No Cholecystectomy: No GI Surgery: Yes Lung Surgery: No Neurologic Surgery: No Orthopedic Surgery: No - Family Disease History Family Disease History: Diabetes: Father, Heart Disease: Father - Immunization History Td Vaccination: Yes Immunization Up to Date: Yes - Suicide/Smoking/Psychosocial Hx Smoking Status: Yes Smoking History: Current every day smoker Have you smoked in the past 12 months: Yes Number of Cigarettes Smoked Daily: 5 Cigars Per Day: 0 Information on smoking cessation initiated: No 'Breaking Loose' booklet given: 11/13/16 Hx Alcohol Use: No Drug/Substance Use Hx: No Substance Use Type: None, Marijuana Hx Substance Use Treatment: No <Marina Garcia Leann - Last Filed: 04/22/17 22:55> - Past Medical History Allergies/Adverse Reactions: Allergies Allergy/AdvReac Type Severity Reaction Status Date / Time No Known Allergies Allergy Verified 04/22/17 18:34 Home Medications: Ambulatory Orders NK [No Known Home Medication] 04/22/17 Abd/GI Specific PMHX - Complaint Specific PMHX GERD: No <Marina Garcia - Last Filed: 04/22/17 22:55> Review of Systems - Review of Systems Able to Perform ROS?: Yes Comments:: 04/22/17 22:45 GENERAL/CONSTITUTIONAL: No fever or chills. No weakness. HEAD, EYES, EARS, NOSE AND THROAT: No change in vision. No ear pain or discharge. No sore throat. CARDIOVASCULAR: No chest pain or shortness of breath RESPIRATORY: No cough, wheezing, or hemoptysis. GASTROINTESTINAL: (+) Abdominal pain, nausea, vomiting. No diarrhea or constipation. GENITOURINARY: No dysuria, frequency, or change in urination. MUSCULOSKELETAL: No joint or muscle swelling or pain. No neck or back pain. SKIN: No rash NEUROLOGIC: No headache, vertigo, loss of consciousness, or change in strength/ sensation. ENDOCRINE: No increased thirst. No abnormal weight change HEMATOLOGIC/LYMPHATIC: No anemia, easy bleeding, or history of blood clots. ALLERGIC/IMMUNOLOGIC: No hives or skin allergy. <Abram Asif - Last Filed: 04/22/17 22:45> *Physical Exam - Vital Signs Last Vital Signs Temp Pulse Resp BP Pulse Ox 98.6 F 85 18 157/101 98 04/22/17 18:34 04/22/17 18:34 04/22/17 18:34 04/22/17 18:34 04/22/17 18:34 - Physical Exam Comments: 04/22/17 22:46 GENERAL: Awake, alert, and fully oriented, in no acute distress HEAD: No signs of trauma, normocephalic, atraumatic EYES: PERRLA, EOMI, sclera anicteric, conjunctiva clear ENT: Auricles normal inspection, hearing grossly normal, nares patent, oropharynx clear without exudates. Moist mucosa NECK: Normal ROM, supple, no lymphadenopathy, JVD, or masses LUNGS: No distress, speaks full sentences, clear to auscultation bilaterally HEART: Regular rate and rhythm, normal S1 and S2, no murmurs, rubs or gallops, peripheral pulses normal and equal bilaterally. ABDOMEN: Soft, nontender, normoactive bowel sounds. No guarding, no rebound. No masses EXTREMITIES : Normal inspection, Normal range of motion, no edema. No clubbing or cyanosis. NEUROLOGICAL: Cranial nerves II through XII grossly intact. Normal speech, normal gait, no focal sensorimotor deficits SKIN: Warm, Dry, normal turgor, no rashes or lesions noted. <Abram Asif - Last Filed: 04/22/17 22:45> - Vital Signs Last Vital Signs Temp Pulse Resp BP Pulse Ox 98.6 F 85 18 157/101 98 04/22/17 18:34 04/22/17 18:34 04/22/17 18:34 04/22/17 18:34 04/22/17 18:34 <Marina Garcia - Last Filed: 04/22/17 22:55> ED Treatment Course - LABORATORY CBC & Chemistry Diagram: 04/22/17 18:44 04/22/17 18:44 - ADDITIONAL ORDERS Additional order review: Laboratory Results 04/22/17 04/22/17 04/22/17 19:25 18:44 18:44 Sodium 137 Potassium 4.3 Chloride 100 Carbon Dioxide 25 D Anion Gap 12 BUN 9 D Creatinine 1.1 Random Glucose 163 H D Calcium 9.7 Lipase 84 Urine Color Gemma Urine Appearance Clear Urine pH 5.0 Ur Specific [place] 1.025 Urine Protein 2+ H Urine Glucose (UA) Negative Urine Ketones Trace H Urine Blood 1+ H Urine Nitrite Negative Urine Bilirubin Negative Urine Urobilinogen 4.0 e.u/dl Ur Leukocyte Esterase Negative Urine WBC (Auto) 4 Urine RBC (Auto) 4 Ur Epithelial Cells Rare Urine Mucus Many 04/22/17 18:44 RBC 4.93 MCV 95.3 MCHC 34.1 RDW 14.6 MPV 8.9 Neutrophils % 64.8 Lymphocytes % 20.9 Monocytes % 11.0 H Eosinophils % 2.4 Basophils % 0.9 - Medications Given in the ED: ED Medications Discontinued Medications Generic Name Dose Route Start Last Admin Trade Name Roderickq PRN Reason Stop Dose Admin Ondansetron HCl 4 mg 04/22/17 19:39 04/22/17 20:09 Zofran Injection IVPUSH 04/22/17 19:40 4 mg ONCE ONE Administration Pantoprazole Sodium 40 mg 04/22/17 19:39 04/22/17 20:09 Protonix Iv IVPUSH 04/22/17 19:40 40 mg ONCE ONE Administration <Abram Asif - Last Filed: 04/22/17 22:45> - LABORATORY CBC & Chemistry Diagram: 04/22/17 18:44 04/22/17 18:44 - ADDITIONAL ORDERS Additional order review: Laboratory Results 04/22/17 04/22/17 04/22/17 19:25 18:44 18:44 Sodium 137 Potassium 4.3 Chloride 100 Carbon Dioxide 25 D Anion Gap 12 BUN 9 D Creatinine 1.1 Random Glucose 163 H D Calcium 9.7 Lipase 84 Urine Color Gemma Urine Appearance Clear Urine pH 5.0 Ur Specific [place] 1.025 Urine Protein 2+ H Urine Glucose (UA) Negative Urine Ketones Trace H Urine Blood 1+ H Urine Nitrite Negative Urine Bilirubin Negative Urine Urobilinogen 4.0 e.u/dl Ur Leukocyte Esterase Negative Urine WBC (Auto) 4 Urine RBC (Auto) 4 Ur Epithelial Cells Rare Urine Mucus Many 04/22/17 18:44 RBC 4.93 MCV 95.3 MCHC 34.1 RDW 14.6 MPV 8.9 Neutrophils % 64.8 Lymphocytes % 20.9 Monocytes % 11.0 H Eosinophils % 2.4 Basophils % 0.9 - Medications Given in the ED: ED Medications Discontinued Medications Generic Name Dose Route Start Last Admin Trade Name Roderickq PRN Reason Stop Dose Admin Ondansetron HCl 4 mg 04/22/17 19:39 04/22/17 20:09 Zofran Injection IVPUSH 04/22/17 19:40 4 mg ONCE ONE Administration Pantoprazole Sodium 40 mg 04/22/17 19:39 04/22/17 20:09 Protonix Iv IVPUSH 04/22/17 19:40 40 mg ONCE ONE Administration <Marina Garcia - Last Filed: 04/22/17 22:55> *DC/Admit/Observation/Transfer - Attestations Scribe Attestion: 02/06/18 22:46 Documentation prepared by Abram Asif, acting as director medical writing for Marina Garcia MD <Abram Asif - Last Filed: 04/22/17 22:45> <Marina Garcia - Last Filed: 04/22/17 22:55> Diagnosis at time of Disposition: Gastritis Qualifiers: Gastritis type: alcoholic Chronicity: unspecified Gastritis bleeding: without bleeding Qualified Code(s): K29.20 - Alcoholic gastritis without bleeding - Discharge Dispostion Disposition: HOME Condition at time of disposition: Improved - Patient Instructions Printed Discharge Instructions: DI for Alcoholic Gastritis Additional Instructions: PLEASE FOLLOW UP WITH YOUR DOCTOR
[2017-04-22] MEDS ORDERED: MAG HYDROX/AL HYDROX/SIMETH 30 ML UNIT-DOSE CUP ONE (22:54)
[2017-04-22] MEDS ORDERED: MAG HYDROX/AL HYDROX/SIMETH 355 ML ORAL.SUSP PO ONE (23:01)
== END 2017-04-22 23:06 | disposition home or self-care (01) ==
LOC: JER 18:27
PROC: 3E033GC Introduction of Other Therapeutic Substance into Peripheral Vein, Percutaneous Approach (ICD-10-PCS; principal; 2017-04-22)
DX: K29.20 Alcoholic gastritis without bleeding (principal); Z87.19 Personal history of other diseases of the digestive system; Z87.442 Personal history of urinary calculi; Z96.0 Presence of urogenital implants
CPT/HCPCS: 36415; 71046-TC-FY; 80048; 81003; 81015; 83690; 85025; 99283-25

== ENCOUNTER 2019-03-28 20:40 | Emergency (ER) | payer OTHER ==
[2019-03-28 20:52] VITALS: BP 137/100; PULSE 83; TEMP 98.5; BMI 26.5
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
== END 2019-03-28 22:44 | disposition home or self-care (01) ==
LOC: JERFT 20:40
DX: S42.022A Displaced fracture of shaft of left clavicle, initial encounter for closed fracture (principal); V28.0XXA Motorcycle driver injured in noncollision transport accident in nontraffic accident, initial encounter; Y92.414 Local residential or business street as the place of occurrence of the external cause; Y93.89 Activity, other specified; Y99.8 Other external cause status; I10 Essential (primary) hypertension; Z87.442 Personal history of urinary calculi
CPT/HCPCS: 73000-TC-LT-FY; 73030-TC-LT-FY; 99281-25

== ENCOUNTER 2020-05-30 23:50 | Emergency (ER) | payer OTHER ==
[2020-05-31 00:22] VITALS: BP 126/84; PULSE 91; TEMP 98.7; BMI 27.4
[2020-05-31] MEDS ORDERED: KETOROLAC TROMETHAMINE 30 MG/1 ML VIAL IM ONE (01:28)
[2020-05-31] MEDS ORDERED: KETOROLAC TROMETHAMINE 30 MG/1 ML VIAL ONE (01:35)
[2020-05-31] MEDS ORDERED: LIDOCAINE 5% TOPICAL PATCH TP ONE (01:42)
[2020-05-31] MEDS ORDERED: LIDOCAINE 5% TOPICAL PATCH ONE (01:44)
[2020-05-31] MEDS ORDERED: LIDOCAINE PATCH REMOVAL MC SCH (22:00)
== END 2020-05-31 01:59 | disposition home or self-care (01) ==
LOC: JER 23:50
PROC: 3E0233Z Introduction of Anti-inflammatory into Muscle, Percutaneous Approach (ICD-10-PCS; principal; 2020-05-30)
DX: M25.512 Pain in left shoulder (principal); S29.011A Strain of muscle and tendon of front wall of thorax, initial encounter; R07.9 Chest pain, unspecified
CPT/HCPCS: 71046-TC-FY; 71101-TC-LT-FY; 73000-TC-LT-FY; 93005; 93010; 99285-25

== ENCOUNTER 2020-09-16 10:53 | Emergency (ER) | payer OTHER ==
[2020-09-16 10:57] VITALS: BP 141/98; PULSE 81; TEMP 98; BMI 30.8
[2020-09-16] MEDS ORDERED: LIDOCAINE 5% TOPICAL PATCH TP ONE (11:11)
[2020-09-16] MEDS ORDERED: KETOROLAC TROMETHAMINE 30 MG/1 ML VIAL IM ONE (11:11)
[2020-09-16] MEDS ORDERED: LIDOCAINE 5% TOPICAL PATCH ONE ×2 (11:53→11:55)
[2020-09-16] MEDS ORDERED: KETOROLAC TROMETHAMINE 30 MG/1 ML VIAL ONE ×2 (11:53→11:55)
[2020-09-16] MEDS ORDERED: LIDOCAINE PATCH REMOVAL MC ONE (22:00)
== END 2020-09-16 12:01 | disposition home or self-care (01) ==
LOC: JERFT 10:53
DX: M54.12 Radiculopathy, cervical region (principal)
CPT/HCPCS: 73030-TC-RT-FY; 99283-25

== ENCOUNTER 2020-09-27 15:21 | Emergency (ER) | payer OTHER ==
[2020-09-27 15:44] VITALS: BP 120/81; PULSE 97; TEMP 98.2; BMI 26.5
[2020-09-27] MEDS ORDERED: KETOROLAC TROMETHAMINE 30 MG/1 ML VIAL IM ONE (16:45)
[2020-09-27] MEDS ORDERED: KETOROLAC TROMETHAMINE 30 MG/1 ML VIAL ONE (16:49)
== END 2020-09-27 16:57 | disposition home or self-care (01) ==
LOC: JERFT 15:21
PROC: 3E0233Z Introduction of Anti-inflammatory into Muscle, Percutaneous Approach (ICD-10-PCS; principal; 2020-09-27)
DX: S93.491A Sprain of other ligament of right ankle, initial encounter (principal)
CPT/HCPCS: 73610-TC-LT-FY; 73630-TC-LT; 99284-25

== ENCOUNTER 2020-11-11 21:31 | Emergency (ER) | payer OTHER ==
[2020-11-11 21:40] VITALS: BP 138/85; PULSE 93; TEMP 98.5; BMI 29.2
== END 2020-11-11 22:59 | disposition home or self-care (01) ==
LOC: JERFT 21:31 → JER 21:31 → JERFT 22:59
DX: M25.512 Pain in left shoulder (principal)
CPT/HCPCS: 73000-TC-LT-FY; 73030-TC-LT-FY; 99284-25

== ENCOUNTER 2021-01-09 15:27 | Inpatient (IN) | payer OTHER ==
[2021-01-09] MEDS ORDERED: IBUPROFEN 400 MG TABLET (FP) PO PRN (18:44)
[2021-01-09] MEDS ORDERED: MAG HYDROX/AL HYDROX/SIMETH 30 ML UNIT-DOSE CUP PO PRN (18:44)
[2021-01-09] MEDS ORDERED: ONDANSETRON *ODT* 4 MG TABLET SL PRN (18:44)
[2021-01-09] MEDS ORDERED: MENTHOL/PHENOL 1 EACH UD MM PRN (18:44)
[2021-01-09] MEDS ORDERED: MAGNESIUM CITRATE 300 ML BOTTLE PO PRN (18:44)
[2021-01-09] MEDS ORDERED: ACETAMINOPHEN 325 MG TABLET (FP) PO PRN ×2 (18:44)
[2021-01-09] MEDS ORDERED: NICOTINE POLACRILEX 2 MG GUM BUC PRN (18:44)
[2021-01-09] MEDS ORDERED: BISMUTH SUBSALICYLATE 524 MG/30 ML PO PRN (18:44)
[2021-01-09] MEDS ORDERED: MAGNESIUM HYDROX 2400MG/30ML ORAL SUSPENSION 30 ML CUP PO PRN (18:44)
[2021-01-09] MEDS ORDERED: diazePAM 5 MG TABLET PO PRN (18:45)
[2021-01-09 20:23] VITALS: BMI 27.3
[2021-01-09] MEDS ORDERED: NICOTINE 10 MG CARTRIDGE (INHALER) IH PRN (20:30)
[2021-01-09] MEDS: THIAMINE HCL 100 MG TABLET (FP) PO SCH (22:41)
[2021-01-09] MEDS: MELATONIN 5 MG TABLETS PO SCH (22:43)
[2021-01-09] MEDS: diazePAM 5 MG TABLET PO ONE ×2 (22:43→22:53)
[2021-01-09] MEDS: diazePAM 5 MG TABLET PO SCH (22:53)
[2021-01-10] MEDS: diazePAM 5 MG TABLET PO SCH ×4 (05:28→22:29)
[2021-01-10 10:53] LABS: HEMATOCRIT 43.3 % (35.4-49); HEMOGLOBIN 14.8 GM/dL (11.7-16.9); MCHC 34.2 g/dl (32.0-35.9); MEAN CELL VOLUME 99.4 fl (80-96); MEAN PLT VOLUME 9.1 fl (7.5-11.1); PLATELET COUNT 186 10^3/uL (134-434); RBC 4.36 M/mm3 (4.00-5.60); RDW 13.5 % (11.9-15.9); WHITE BLOOD COUNT 5.7 K/mm3 (4.0-10.0)
[2021-01-10] MEDS: PRENATAL VITAMINS W/ FOLIC ACID TABLET (FP) PO SCH (10:53)
[2021-01-10] MEDS: METHOCARBAMOL 500 MG TABLET PO PRN (10:55)
[2021-01-10 11:05] LABS: ALBUMIN 3.4 g/dl (3.4-5.0); CALCIUM 8.9 mg/dL (8.5-10.1)
[2021-01-10 11:06] LABS: BLOOD UREA NITROGEN 10.2 mg/dL (7-18)
[2021-01-10 11:08] LABS: CREATININE 0.8 mg/dL (0.55-1.3)
[2021-01-10 11:10] LABS: BILIRUBIN,TOTAL 0.7 mg/dL (0.2-1); TOT PROT 6.5 g/dl (6.4-8.2)
[2021-01-10] MEDS: NICOTINE 14 MG/24 HOURS TOPICAL PATCH TD SCH (11:37)
[2021-01-10] MEDS: amLODIPine BESYLATE 10 MG TABLET (FP) PO SCH (12:03)
[2021-01-10] MEDS ORDERED: DICYCLOMINE HCL 10 MG CAPSULE PO ONE (13:30)
[2021-01-10] MEDS ORDERED: DICYCLOMINE HCL 20 MG TABLET PO ONE (13:30)
[2021-01-10] MEDS: MELATONIN 5 MG TABLETS PO SCH (22:29)
[2021-01-10] MEDS: hydrOXYzine PAMOATE 25 MG CAPSULE (FP) PO PRN (22:29)
[2021-01-10] MEDS: THIAMINE HCL 100 MG TABLET (FP) PO SCH (22:29)
[2021-01-11] MEDS: diazePAM 5 MG TABLET PO SCH ×3 (05:37→21:52)
[2021-01-11] MEDS: PRENATAL VITAMINS W/ FOLIC ACID TABLET (FP) PO SCH (10:58)
[2021-01-11] MEDS: METHOCARBAMOL 500 MG TABLET PO PRN (10:58)
[2021-01-11] MEDS: amLODIPine BESYLATE 10 MG TABLET (FP) PO SCH (10:58)
[2021-01-11] MEDS: NICOTINE 14 MG/24 HOURS TOPICAL PATCH TD SCH (10:59)
[2021-01-11] MEDS: hydrOXYzine PAMOATE 25 MG CAPSULE (FP) PO PRN (14:26)
[2021-01-11] MEDS: MELATONIN 5 MG TABLETS PO SCH (21:51)
[2021-01-11] MEDS: THIAMINE HCL 100 MG TABLET (FP) PO SCH (21:51)
[2021-01-12] MEDS: diazePAM 5 MG TABLET PO SCH ×2 (06:21→17:48)
[2021-01-12] MEDS: PRENATAL VITAMINS W/ FOLIC ACID TABLET (FP) PO SCH (10:24)
[2021-01-12] MEDS: amLODIPine BESYLATE 10 MG TABLET (FP) PO SCH (10:24)
[2021-01-12] MEDS: NICOTINE 14 MG/24 HOURS TOPICAL PATCH TD SCH (10:24)
[2021-01-12] MEDS: hydrOXYzine PAMOATE 25 MG CAPSULE (FP) PO PRN (10:25)
[2021-01-12] MEDS: MELATONIN 5 MG TABLETS PO SCH (22:39)
[2021-01-12] MEDS: THIAMINE HCL 100 MG TABLET (FP) PO SCH (22:40)
[2021-01-13] MEDS ORDERED: diazePAM 5 MG TABLET PO ONE (06:00)
[2021-01-13] MEDS: NICOTINE 14 MG/24 HOURS TOPICAL PATCH TD SCH (10:44)
[2021-01-13] MEDS: hydrOXYzine PAMOATE 25 MG CAPSULE (FP) PO PRN (10:44)
[2021-01-13] MEDS: amLODIPine BESYLATE 10 MG TABLET (FP) PO SCH (10:44)
[2021-01-13] MEDS: PRENATAL VITAMINS W/ FOLIC ACID TABLET (FP) PO SCH (10:44)
[2021-01-13 14:54] VITALS: BP 104/68; PULSE 85; TEMP 97.6
== END 2021-01-13 14:55 | disposition home or self-care (01) | DRG 775 ==
LOC: YASAS 15:27 → Y6N 19:31
PROVIDERS: ADMIT Allergy & Immunology; ATTEND Allergy & Immunology
PROC: HZ2ZZZZ Detoxification Services for Substance Abuse Treatment (ICD-10-PCS; principal; 2021-01-09)
DX: F10.230 Alcohol dependence with withdrawal, uncomplicated (principal); M54.50 Low back pain, unspecified; G89.29 Other chronic pain; R03.0 Elevated blood-pressure reading, without diagnosis of hypertension; Z20.822 Contact with and (suspected) exposure to COVID-19; Z87.442 Personal history of urinary calculi; Z87.19 Personal history of other diseases of the digestive system
CPT/HCPCS: 36415; 80053; 85027; 86780; C9803; U0003; U0005